=== PATIENT | male | born 1940 | race Caucasian/White ===

== ENCOUNTER 2020-10-29 06:54 | Outpatient (CLI) | payer MEDICARE, BC ==
[2020-10-29 16:43] LABS: Hemoglobin 14.8 g/dL (14.0-18.0); Mean Corpuscular HGB CONC 33.5 G/DL (32.0-36.0); Mean Corpuscular Hemoglobin 29.8 PG (27.0-33.0); Mean Corpuscular Volume 89.1 fl (80.0-100.0); Mean Platelet Volume 10.4 fl (7.4-10.4); Platelet Count 151 10x3/uL (130-400); RBC Distribution Width 13.5 % (11.5-14.5); Red Blood Cell (RBC) Count 4.96 10x6/uL (4.40-5.80); White Blood Cell (WBC) Count 3.6 10x3/uL (4.5-11.0)
[2020-10-29 16:54] LABS: Bilirubin Neg (Negative); Blood, Urine 25 (Negative); Clarity Clear (Clear); Glucose, Urine (Dipstick) 250 mg/dL (Negative); Ketone, Urine 5 mg/dL (Negative); Leukocyte 25 (Negative); Nitrite Negative (Negative); Protein, Urine (Dipstick) 100 mg/dl (Neg-Trace); Urobilinogen Normal mg/dL (Less than 2)
[2020-10-29 16:56] LABS: Anion Gap 17 mmol/L (10-20); BUN (Urea Nitrogen) 22 mg/dL (8.4-25.7); Calc. Creatinine Clearance 0 mL/min (70-130); Calcium 8.7 mg/dL (7.8-10.44); Carbon Dioxide 23 mmol/L (23-31); Chloride 105 mmol/L (98-107); Glucose 294 mg/dL (83-110); Potassium 3.8 mmol/L (3.5-5.1); Sodium 141 mmol/L (136-145)
[2020-10-29 16:58] LABS: INR-International Normal Ratio 1.1; PTT 28.3 sec (22.0-33.0); Prothrombin Time 11.2 sec (9.5-12.1)
[2020-10-29 17:17] LABS: Squamous Epithelial 0-3 HPF (0-3)
[2020-10-29 17:18] LABS: Bacteria/HPF Rare-Few HPF (None Seen); Mucous/LPF 1+ LPF (<2+); Renal Epithelial 0-3 HPF (None Seen); Transitional Epithelial 0-3 HPF (None Seen)
[2020-10-30 03:07] LABS: SARS-CoV-2 MS2 Positive; SARS-CoV-2 N Gene Negative; SARS-CoV-2 S Gene Negative; SARS-CoV-2 by NAA Not Detected (NotDetected); SARS-CoV-2 orf1ab Negative
--- NOTE | 2020-10-30 16:09 | EKG ---
Test Reason : Blood Pressure : / mmHG Vent. Rate : 062 BPM Atrial Rate : 062 BPM P-R Int : 198 ms QRS Dur : 086 ms QT Int : 420 ms P-R-T Axes : 062 039 011 degrees QTc Int : 426 ms Sinus rhythm with Premature atrial complexes Otherwise normal ECG No previous ECGs available Confirmed by DR. Georges EID ([id number]) on 10/30/2020 4:08:52 PM Referred By: LINH Confirmed By:DR. Georges EID
== END 2020-10-29 06:55 | disposition home or self-care (01) ==
LOC: LABBT 06:54
PROVIDERS: ATTEND Urology
DX: Z01.818 Encounter for other preprocedural examination (principal); C67.9 Malignant neoplasm of bladder, unspecified; N40.0 Benign prostatic hyperplasia without lower urinary tract symptoms; Z20.828 Contact with and (suspected) exposure to other viral communicable diseases
CPT/HCPCS: 80048; 81001; 85027; 85610; 85730; 87086; 93005; U0003; 87635; 93010

== ENCOUNTER 2020-11-03 11:41 | Observation (INO) | payer MEDICARE, BC ==
[~2020-11-03 11:41] MED LIST: Lidocaine 1% PF 5 ML VIAL ONE; PROPOFOL 200 MG/20 ML VIAL ONE
[2020-11-03] MEDS ORDERED: Levofloxacin 500 mg/D5W 100 ml Premix Bag ONE (13:55)
[2020-11-03] MEDS ORDERED: Fentanyl 100 MCG/2 ML VIAL ONE ×3 (15:16→21:09)
[2020-11-03] MEDS ORDERED: Iothalamate Meglumine 60% 50 ML VIAL FS ONE (15:29)
[2020-11-03] MEDS ORDERED: Ondansetron PF 4 MG/2 ML Vial IVP PRN (16:36)
[2020-11-03] MEDS ORDERED: Insulin Regular 300 UNITS/3 ML VIAL SC PRN (16:36)
[2020-11-03] MEDS ORDERED: HYDROcodone/Acetaminophen 5/325 mg Tablet PO PRN (16:36)
[2020-11-03] MEDS ORDERED: Zolpidem Tartrate 5 MG TAB PO PRN (16:36)
[2020-11-03] MEDS ORDERED: Dextrose 50% Abboject 50 ML SYRINGE SLOW IVP PRN (16:36)
[2020-11-03] MEDS ORDERED: Hyoscyamine Sulfate SL 0.125 mg Tablet SL PRN (16:36)
[2020-11-03] MEDS ORDERED: Ketorolac Tromethamine 30 MG/ML VIAL IVP PRN (16:36)
[2020-11-03] MEDS ORDERED: diphenhydrAMINE 50 MG/ML VIAL IVP PRN (16:36)
[2020-11-03] MEDS ORDERED: Dextrose 5% in Water 1,000 ML IV PRN (16:36)
[2020-11-03] MEDS ORDERED: ENTACAPONE PO SCH (17:00)
[2020-11-03] MEDS ORDERED: [UNRECOGNIZED DRUG - OTHER] PO SCH (17:00)
[2020-11-03] MEDS ORDERED: LEVODOPA PO SCH (17:00)
[2020-11-03] MEDS ORDERED: CARBIDOPA PO SCH (17:00)
--- NOTE | 2020-11-03 19:49 | OP ---
DATE OF PROCEDURE: 11/03/2020 PREOPERATIVE DIAGNOSIS: Bladder cancer, prostatic urethra tumor, enlarged prostate with lower urinary tract symptoms. 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 PROCEDURES PERFORMED: Transurethral resection of prostate, bladder biopsy, retrograde pyelogram. ANESTHESIA: General. COMPLICATIONS: None. ESTIMATED BLOOD LOSS: Minimal. SPECIMENS: Bladder biopsy, prostatic urethra tumor, prostate. COMPLICATIONS: None. DESCRIPTION OF PROCEDURE: After informed consent, the patient was taken to the operating room, transferred to the table on his own power. Anesthesia was established. Time-out was performed showing the correct patient, site, and procedure. Preoperative antibiotics were administered. He was prepped and draped in the lithotomy position. The rigid resectoscope was advanced through the urethra noting a normal course and caliber of the urethra down to the prostatic urethra noting abnormal tumor emanating from the left lobe of the prostate and a lower profile tumor emanating more proximally from the right lobe. Both lobes were obstructing. The bladder was entered and systematically examined, noting moderate trabeculation with only very minimal erythema into small areas. There were no obvious mucosal abnormalities. I am able to appreciate several previous resection sites. Both ureters normal in appearance. A [place] catheter was used to perform bilateral retrograde pyelogram noting no filling defects or evidence of hydronephrosis. The resection loop was then used to take two bladder biopsies from the areas of erythema, which were passed off. I then resected the tumor from the prostatic urethra and these were passed off as well separately. Finally, I resected the left lobe from 1 o'clock down to midline and then the right lobe from 11 o'clock down to midline. Anterior obstructing tissue was then removed. Care was taken to avoid resection distal to the verumontanum. Meticulous hemostasis was then achieved both in the prostate and bladder. The bladder was drained and reexamined, noting no residual bleeding. All prostate chips were removed and passed off as specimen. The bladder was then drained, the scope withdrawn. A 22-[place] 3-way catheter was placed with 30 mL instilled in the balloon. This was connected to CBI, which was running clear as we finished the case. The patient was then awoken from anesthesia, transferred back to his hospital bed and taken to PACU stable condition, where he will be admitted overnight for CBI. Job ID: [id number]
[2020-11-03] MEDS ORDERED: Simvastatin 10 MG TAB PO SCH (21:00)
--- NOTE | 2020-11-03 21:56 | RAD ---
XR Fluoro - Per Hour History: Stone Comparison: None. Findings: 3 images were obtained from the procedure suite. Contrast is seen within both collecting sy stems. Possible right distal ureteral stone. Impression: Fluoroscopy for procedure purposes
[2020-11-03] MEDS ORDERED: Amlodipine 5 MG TAB PO SCH (22:45)
[2020-11-03] MEDS ORDERED: Losartan 25 MG TAB PO SCH (23:00)
[2020-11-03] MEDS: Pregabalin 75 MG CAP PO SCH (23:00)
[2020-11-03] MEDS: Docusate 100 MG CAP PO SCH (23:01)
[2020-11-03] MEDS: Famotidine/PF 20 mg/2ml Vial SLOW IVP SCH (23:01)
[2020-11-03] MEDS: Sodium Chloride 0.9% 1,000 ML IV SCH (23:01)
[2020-11-03 23:35] VITALS: BMI 30.5
[2020-11-04] MEDS ORDERED: hydrALAZINE 20 MG/ML VIAL SLOW IVP PRN (00:37)
[2020-11-04] MEDS: Sodium Chloride 0.9% 1,000 ML IV SCH (06:19)
[2020-11-04] MEDS ORDERED: Amlodipine 5 MG TAB PO SCH ×2 (09:00→21:00)
[2020-11-04] MEDS ORDERED: Losartan 25 MG TAB PO SCH ×2 (09:00→21:00)
[2020-11-04] MEDS: Docusate 100 MG CAP PO SCH (09:17)
[2020-11-04] MEDS: Famotidine/PF 20 mg/2ml Vial SLOW IVP SCH (09:17)
--- NOTE | 2020-11-04 09:25 | DIS ---
DATE OF ADMISSION: 11/03/2020 DATE OF DISCHARGE: 11/04/2020 DISCHARGE DIAGNOSIS: Bladder cancer, enlarged prostate with lower urinary tract symptoms. PROCEDURES PERFORMED: Transurethral resection of prostate, bladder biopsy, retrograde pyelograms. HOSPITAL COURSE: The patient underwent resection of prostatic urethral tumor, bladder biopsy, resection of prostate on November 03. There were no surgical complications. He was managed overnight with continuous bladder irrigation, which was clear the next morning. This was stopped and his urine remained clear off CBI. He was deemed stable for discharge home at that point. DISCHARGE PHYSICAL EXAMINATION: GENERAL: No acute distress. LUNGS: Unlabored breathing. HEART: Regular rate and rhythm. ABDOMEN: Soft, nontender, and nondistended. No flank tenderness. No suprapubic tenderness. GENITOURINARY: [place] catheter in good position, draining clear urine. ACTIVITY: Resume regular activity. DIET: Resume diabetic diet. DISCHARGE MEDICATIONS: He will resume all home medications. I have sent Bactrim, oxybutynin, docusate to his pharmacy. FOLLOWUP: He will follow up next Monday for void trial in our office. Job ID: [id number]
[2020-11-04 09:37] VITALS: TEMP 97.8
[2020-11-04] MEDS: Pregabalin 75 MG CAP PO SCH (10:15)
[2020-11-04 12:27] VITALS: BP 156/63
== END 2020-11-04 14:40 | disposition home or self-care (01) ==
LOC: SDC 11:41 → SURG B 15:34 → SDC 16:36 → SURG B 16:36
PROVIDERS: ADMIT Urology; ATTEND Urology
PROC: 0V507ZZ Destruction of Prostate, Via Natural or Artificial Opening (ICD-10-PCS; principal; 2020-11-03)
DX: N40.1 Benign prostatic hyperplasia with lower urinary tract symptoms (principal); C67.2 Malignant neoplasm of lateral wall of bladder; I12.9 Hypertensive chronic kidney disease with stage 1 through stage 4 chronic kidney disease, or unspecified chronic kidney disease; E11.21 Type 2 diabetes mellitus with diabetic nephropathy; E11.22 Type 2 diabetes mellitus with diabetic chronic kidney disease; N18.30 Chronic kidney disease, stage 3 unspecified; E78.5 Hyperlipidemia, unspecified; I25.10 Atherosclerotic heart disease of native coronary artery without angina pectoris; I73.9 Peripheral vascular disease, unspecified; J44.9 Chronic obstructive pulmonary disease, unspecified; G20 Parkinson's disease; F02.80 Dementia in other diseases classified elsewhere, unspecified severity, without behavioral disturbance, psychotic disturbance, mood disturbance, and anxiety; K21.9 Gastro-esophageal reflux disease without esophagitis; Z79.4 Long term (current) use of insulin; Z79.899 Other long term (current) drug therapy; Z87.891 Personal history of nicotine dependence
CPT/HCPCS: 36416; 74420; 76000; 88305; 96374; 96375; 96376; G0378; J0360; J1956; J2704; J3010; S0028

== ENCOUNTER 2020-11-07 13:43 | Inpatient (IN) | payer MEDICARE, BC ==
[~2020-11-07 13:43] MED LIST changes: +Iopamidol-370 76% 500 ML 1 ML ONE; -Lidocaine 1% PF 5 ML VIAL ONE; -PROPOFOL 200 MG/20 ML VIAL ONE
--- NOTE | 2020-11-07 14:39 | RAD ---
XR Chest 1 View Portable HISTORY: Near syncope. Recent bladder surgery COMPARISON: None FINDINGS: The heart size is normal. The lungs are without focal areas of consolidation, pneumothorax or pleural effusions. There is mild atelectatic change at the right lung base. There is interposition of the colon between the right hemidiaphragm and the liver..
--- NOTE | 2020-11-07 14:40 | CT ---
CT BRAIN WITHOUT CONTRAST: HISTORY:Near syncope COMPARISON:None FINDINGS: There are foci of decreased attenuation in the periventricular white matter, consistent with chronic small vessel ischemic disease. There are changes of cortical atrophy. No evidence of acute infarct, hemorrhage, midline shift or abnormal extra-axial fluid collections is seen. The ventricular size is appropriate and the basilar cisterns are patent. The bony calvarium is intact. There is a mucous retention cyst versus polyp in the right maxillary sinus. IMPRESSION: No CT evidence of acute intracranial process.
[2020-11-07 14:57] LABS: #Eosinphils 0.1 thou/uL (0.0-0.7); #Lymphocytes 0.6 thou/uL (1.20-3.40); #Monocytes 0.5 thou/uL (0.11-0.59); #Neutrophils 4.3 thou/uL (1.40-6.50); %Basophils 0.1 % (0.0-1.0); %Eosinophils 2.5 % (0.0-10.0); %Lymphocytes 11.4 % (21.0-51.0); %Monocytes 8.4 % (0.0-10.0); %Neutrophils 77.5 % (42.0-75.0); Hemoglobin 14.1 g/dL (14.0-18.0); Mean Corpuscular HGB CONC 34.1 g/dL (32.0-36.0); Mean Corpuscular Hemoglobin 30.7 pg (27.0-31.0); Mean Platelet Volume 8.4 fL (7.4-10.4); Platelet Count 135 thou/uL (130-400); RBC Distribution Width 12.9 % (11.5-14.5); Red Blood Cell (RBC) Count 4.59 mill/uL (4.70-6.10); White Blood Cell (WBC) Count 5.6 thou/uL (4.8-10.8)
[2020-11-07 15:20] LABS: ALT (SGPT) Less than 7 U/L (8-55); AST (SGOT) 9 U/L (5-34); Albumin 3.9 g/dL (3.4-4.8); Alkaline Phosphatase 98 U/L (40-110); Anion Gap 14 mmol/L (10-20); BUN (Urea Nitrogen) 17 mg/dL (8.4-25.7); Bilirubin, Total 0.4 mg/dL (0.2-1.2); Calc. Creatinine Clearance 0 mL/min (70-130); Calcium 8.8 mg/dL (7.8-10.44); Carbon Dioxide 27 mmol/L (23-31); Chloride 103 mmol/L (98-107); Globulin 2.2 g/dL (2.4-3.5); Glucose 248 mg/dL (83-110); Potassium 3.9 mmol/L (3.5-5.1); Protein, Total 6.1 g/dL (5.8-8.1); Sodium 140 mmol/L (136-145)
[2020-11-07 15:54] LABS: Bacteria/HPF None Seen HPF (None Seen); Bilirubin Negative (Negative); Blood, Urine 3+ (Negative); Clarity Turbid (Clear); Glucose, Urine (Dipstick) 70 mg/dL (Negative); Ketone, Urine Trace mg/dL (Negative); Leukocyte 75 Leu/uL (Negative); Nitrite Negative (Negative); Protein, Urine (Dipstick) 300 mg/dL (Neg-Trace); RBC/HPF Greater than 50 HPF (0-3); Specific Gravity, Urine 1.025 (1.002-1.036); Squamous Epithelial None Seen HPF (0-3); Urobilinogen Normal mg/dL (Less than 2); pH, Urine 6.5 (5.0-9.0)
--- NOTE | 2020-11-07 17:15 | CT ---
CT PULMONARY ANGIOGRAM WITH IV CONTRAST AND 3D POSTPROCESSIN11/07/20 HISTORY: Near syncope. FINDINGS: There is good contrast opacification of the pulmonary arterial vasculature without filling defects to suggest pulmonary embolism. There are vascular calcifications without aneurysm or dissection of the thoracic aorta. No pleural or pericardial effusions are identified. No lobar consolidation, pneumot horaces, or lung mass/nodules are seen. There are dependent changes in the posterior lung bases. Ther e are degenerative changes in the spine. There is a peripherally calcified 17 mm nodule in the left l obe of the thyroid gland. IMPRESSION: No CT evidence of pulmonary embolism. POS: OFF
[2020-11-07] MEDS ORDERED: Aspirin Chewable 81 MG TAB ONE (17:57)
[2020-11-07 18:40] LABS: Troponin I 0.017 ng/mL (< 0.028)
[2020-11-07] MEDS ORDERED: Ondansetron PF 4 MG/2 ML Vial IVP PRN ×2 (20:00→22:58)
[2020-11-07] MEDS ORDERED: Acetaminophen 325 MG TAB PO PRN ×2 (20:00→22:58)
[2020-11-07] MEDS ORDERED: Sodium Chloride 0.9% 1,000 ML IV SCH ×2 (20:00→23:00)
[2020-11-07] MEDS ORDERED: Ondansetron ODT 4 MG TAB SL PRN (20:00)
--- NOTE | 2020-11-07 20:38 | PDOC.HHP ---
Hospitalist HPI - History of Present Illness AMS History of Present Illness: PCP: Dr. De La Torre The majority of the H&P was taken from the ER note due to the patient's altered mental status. The patient is an 80-year-old male with a past medical history significant for prostate cancer, bladder cancer, BPH, Parkinson's disease, hypertension and DM2 that presents to the emergency department via EMS for the above complaint. The patient was recently discharged from our hospital on 09/04/2020 after undergoing a TURP, bladder biopsy and retrograde pyelogram with Dr. Mcnulty. The patient tolerated the procedure well. There were no postop complications. The patient was discharged home on Bactrim and oxybutynin. Since discharge, the patient has been confused. There is mention of visual hallucinations and general weakness. The night prior to admission, the patient apparently needed assistance to sit down in a chair and then was lowered to the floor because he was so weak and missed the chair. There was no LOC or hitting his head. No documented fever/illness, fall/trauma. Recently started on bactrim and oxybutynin s/p TURP. No documented hematuria, hematochezia/melena or hemoptysis. EMS was called and the patient was brought into the emergency room for further evaluation. ED Course: Vital signs: The patient presented hypertensive, NL HR, RR, SPO2, afebrile. Medication administration: Full dose aspirin 1 L normal saline Hospitalist ROS - Review of Systems ROS unobtainable: due to mental status All other systems reviewed; all pertinent +/- noted in HPI/Subj - Medication Medications: Medication Instructions Recorded Confirmed Type Amlodipine [Norvasc] 5 mg PO DAILY 11/02/20 11/07/20 History Carbidopa/Levodopa/Entacapone 1 each PO QID 11/02/20 11/07/20 History [Carbidopa-Levodopa 200 mg-Enta] Dulaglutide [Trulicity] 1.5 mg SC Q7D 11/02/20 11/07/20 History Ergocalciferol (Vitamin D2) 50,000 unit PO Q7DAYS 11/02/20 11/07/20 History [Vitamin D2] Insulin Degludec [Tresiba 10 unit SQ QPM 11/02/20 11/07/20 History Flextouch U-100] Losartan Potassium 50 mg PO DAILY 11/02/20 11/07/20 History Multivit-Min/FA/Lycopen/Lutein 1 each PO DAILY 11/02/20 11/07/20 History [Men 50 Plus Multivitamin Tab] Pantoprazole Sodium 40 mg PO DAILY 11/02/20 11/07/20 History Pregabalin [Lyrica] 150 mg PO TID 11/02/20 11/07/20 History Simvastatin 10 mg PO HS 11/02/20 11/07/20 History Tamsulosin HCl 0.4 mg PO QAM 11/02/20 11/07/20 History Valsartan 40 mg PO DAILY 11/02/20 11/07/20 History diphenhydrAMINE HCl 50 mg PO QAM PRN 11/02/20 11/07/20 History [Diphenhydramine HCl] Oxybutynin [Ditropan] 1 tab PO BID 11/07/20 11/07/20 History Sulfamethoxazole/Trimethoprim 1 tab PO TID 11/07/20 11/07/20 History [Sulfamethoxazole-Tmp Ds Tablet] Allergies No Known Allergies Allergy (Verified 11/02/20 11:03) CODE STATUS: Full code Hospitalist History - Past Medical History Source: RN notes reviewed, old records Cardiac: reports: HTN, Hyperlipidemia, Other (Blood clots) 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: Other (Parkinson's disease) Renal/: reports: Chronic renal insuff (CKD 3), Benign prostatic enlarg., Other (Bladder cancer, prostate cancer) Endocrine: reports: Diabetes (Type II on insulin) - Past Surgical History Past Surgical History: reports: Appendectomy, TURP (11/03/2020), Other (Back surgery x4, bilateral knee surgery, right rotator cuff surgery, bilateral hip revision) - Family History Other Family History: Unable to determine at bedside due to patient's altered mental status - Social History Smoking Status: Former smoker (Quit greater than 10 years ago) Alcohol: reports: Occassional Drugs: reports: none Living Situation: Other (Unable to determine at time of admission due to patient's altered mental status) - Exam General Appearance: awake alert. negative: ill appearing General - other findings: Confused, follows commands Eye: PERRL, anicteric sclera ENT: normocephalic atraumatic, moist mucosa Neck: supple, symmetric Heart: RRR, no murmur, no gallops, no rubs, normal peripheral pulses Respiratory: CTAB, no wheezes, no rales, no ronchi, normal chest expansion, no tachypnea Gastrointestinal: soft, non-tender, non-distended, normal bowel sounds, no guarding, no rigidity Gastrointestinal - other findings: No rebound tenderness, negative Rovsing sign, negative Villafuerte sign Extremities: no cyanosis, no edema Skin: no rashes Neurological: no focal deficits Neurological - other findings: Bilateral upper extremity tremor, GCS: E4, V4, M6 Psychiatric - other findings: Alert and oriented to person Hospitalist Results - Labs Result Diagrams: 11/07/20 14:48 11/07/20 14:48 Lab results: WBC 5.6 thou/uL (4.8-10.8) 11/07/20 14:48 Hgb 14.1 g/dL (14.0-18.0) 11/07/20 14:48 Hct 41.4 % (42.0-52.0) L 11/07/20 14:48 MCV 90.0 fL (78.0-98.0) 11/07/20 14:48 Plt Count 135 thou/uL (130-400) 11/07/20 14:48 Neutrophils % 77.5 % (42.0-75.0) H 11/07/20 14:48 Sodium 140 mmol/L (136-145) 11/07/20 14:48 Potassium 3.9 mmol/L (3.5-5.1) 11/07/20 14:48 Chloride 103 mmol/L (98-107) 11/07/20 14:48 Carbon Dioxide 27 mmol/L (23-31) 11/07/20 14:48 BUN 17 mg/dL (8.4-25.7) 11/07/20 14:48 Creatinine 1.61 mg/dL (0.7-1.3) H 11/07/20 14:48 Glucose 248 mg/dL (83-110) H 11/07/20 14:48 Calcium 8.8 mg/dL (7.8-10.44) 11/07/20 14:48 Total Bilirubin 0.4 mg/dL (0.2-1.2) 11/07/20 14:48 AST 9 U/L (5-34) 11/07/20 14:48 ALT Less than 7 U/L (8-55) L 11/07/20 14:48 Alkaline Phosphatase 98 U/L (40-110) 11/07/20 14:48 Troponin I 0.017 ng/mL (< 0.028) 11/07/20 18:10 Serum Total Protein 6.1 g/dL (5.8-8.1) 11/07/20 14:48 Albumin 3.9 g/dL (3.4-4.8) 11/07/20 14:48 Urine Ketones Trace mg/dL (Negative) A 11/07/20 15:24 Urine Blood 3+ (Negative) A 11/07/20 15:24 Urine Nitrite Negative (Negative) 11/07/20 15:24 Ur Leukocyte Esterase 75 Emmanuelle/uL (Negative) A 11/07/20 15:24 Urine RBC Greater than 50 HPF (0-3) A 11/07/20 15:24 Urine WBC 4-6 HPF (0-3) A 11/07/20 15:24 Ur Squamous Epith Cells None Seen HPF (0-3) 11/07/20 15:24 Urine Bacteria None Seen HPF (None Seen) 11/07/20 15:24 - EKG Interpretation EKG: Sinus rhythm, first-degree AV block, LVH, no ST elevations - Radiology Interpretation CT scan - head Status: report reviewed by me Additional Comment: No acute intracranial process Chest x-ray Status: report reviewed by me Additional Comment: Mild atelectatic change in the right lower base CT scan - chest Status: report reviewed by me Additional Comment: Negative for pulmonary embolism. Hospitalist H&P A/P - Problem (1) Altered mental status Code(s): R41.82 - ALTERED MENTAL STATUS, UNSPECIFIED Status: Acute (2) Near syncope Status: Acute (3) BPH (benign prostatic hyperplasia) Code(s): N40.0 - BENIGN PROSTATIC HYPERPLASIA WITHOUT LOWER URINRY TRACT SYMP Status: Chronic (4) Hypertension Code(s): I10 - ESSENTIAL (PRIMARY) HYPERTENSION Status: Chronic (5) CKD (chronic kidney disease), stage III Code(s): N18.30 - CHRONIC KIDNEY DISEASE, STAGE 3 UNSPECIFIED Status: Chronic (6) DM2 (diabetes mellitus, type 2) Status: Chronic (7) Parkinsons disease Code(s): G20 - PARKINSON'S DISEASE Status: Chronic - Plan Plan: 80/M with PMH prostate/bladder CA, PD presents for AMS. Admit to telemetry floor, inpatient status. Expected length of stay greater than 2 midnights. Presented hypertensive, NL HR, RR, SPO2, afebrile. CT brain no acute process EKG NSR, first-degree AV block. Troponin 0.017, 0.018, 0.012. D-dimer 0.66, CTA no PE WBC 5.6, UA positive leukocyte esterase, WBCs #Altered mental status Unclear etiology at this time. Status post TURP on 11/[address] Mcnulty. Started on Bactrim and oxybutynin at that time. Will defer ABX for now, no obvious signs of infection. Consult Dr. Mcnulty. Urine culture pending. Check ammonia, drug screen, TSH level. #Near syncope Unclear etiology at this time. EKG and CT brain unremarkable. We will trend troponins. Urine culture pending. #BPH History of prostate and bladder cancer. Status post TURP with bladder biopsy on 11/[address] Mcnulty. #Hypertension Presented hypertensive. Takes amlodipine and losartan at home. Restart home medications. Add hydralazine as needed #CKD stage III Chronic, appears stable. Presented creatinine 1.61. Was 1.42 on 10/29/2020. Was taking Bactrim at home. We will continue to monitor. #DM2 Presented BG 248. Takes Tresiba 10 units and Trulicity at home. Restart home medications. We will add mild ISS. Accu-Cheks AC at bedtime. #Parkinson's disease Chronic. Takes carbidopa levodopa at home. Restart home medications when reconciled by nursing. SCDs for DVT prophylaxis. Protonix for GI prophylaxis. Full code. Discussed the case with Dr. Yusuf Brand.
[2020-11-07] MEDS ORDERED: diphenhydrAMINE 25 MG CAP PO PRN (21:32)
[2020-11-07] MEDS ORDERED: Dextrose 50% Abboject 50 ML SYRINGE SLOW IVP PRN (21:49)
[2020-11-07] MEDS ORDERED: Dextrose 5% in Water 1,000 ML IV PRN (21:49)
[2020-11-07] MEDS ORDERED: HumaLOG 300 UNITS/3 ML VIAL SC PRN (21:49)
[2020-11-07 22:06] LABS: Troponin I 0.012 ng/mL (< 0.028)
[2020-11-07] MEDS ORDERED: hydrALAZINE 20 MG/ML VIAL SLOW IVP PRN (22:11)
[2020-11-07] MEDS ORDERED: Ondansetron ODT 4 MG TAB PO PRN (22:58)
[2020-11-07] MEDS ORDERED: Acetaminophen 650 MG Suppository PR PRN (22:58)
[2020-11-07 23:59] LABS: Amphetamine Not Detected (NotDetected); Barbiturates Screen Not Detected (NotDetected); Benzodiazepine Screen Detected (NotDetected); Cocaine Metabolite Screen Not Detected (NotDetected); Medtox Control Line Valid? VALID (VALID); Medtox Reader # READER 1; Methadone Not Detected (NotDetected); Methamphetamine Not Detected (NotDetected); Opiate Screen Not Detected (NotDetected); Oxycodone Screen Not Detected (NotDetected); Phencyclidine (PCP) Not Detected (NotDetected); THC/Cannabinoid Screen Not Detected (NotDetected); Tricyclic Screen Not Detected (NotDetected)
[2020-11-08 00:22] LABS: Acetaminophen Less than 6.0 mcg/mL (10.0-30.0); Alcohol Less than 10 mg/dL (Less than 10); Salicylate Less than 8.0 mg/dL (15.0-30.0)
[2020-11-08 04:29] VITALS: BMI 28.4
[2020-11-08 04:32] LABS: #Eosinphils 0.1 thou/uL (0.0-0.7); #Lymphocytes 0.6 thou/uL (1.20-3.40); #Monocytes 0.3 thou/uL (0.11-0.59); #Neutrophils 2.7 thou/uL (1.40-6.50); %Eosinophils 3.8 % (0.0-10.0); %Neutrophils 72.2 % (42.0-75.0); Hemoglobin 12.9 g/dL (14.0-18.0); Mean Corpuscular HGB CONC 34.3 g/dL (32.0-36.0); Mean Corpuscular Hemoglobin 30.6 pg (27.0-31.0); Mean Corpuscular Volume 89.2 fL (78.0-98.0); Mean Platelet Volume 8.7 fL (7.4-10.4); Platelet Count 130 thou/uL (130-400); RBC Distribution Width 12.9 % (11.5-14.5); Red Blood Cell (RBC) Count 4.23 mill/uL (4.70-6.10); White Blood Cell (WBC) Count 3.7 thou/uL (4.8-10.8)
[2020-11-08 04:47] LABS: Anion Gap 14 mmol/L (10-20); BUN (Urea Nitrogen) 14 mg/dL (8.4-25.7); Calc. Creatinine Clearance 51 mL/min (70-130); Calcium 8.4 mg/dL (7.8-10.44); Carbon Dioxide 24 mmol/L (23-31); Chloride 106 mmol/L (98-107); Glucose 195 mg/dL (83-110); Potassium 3.6 mmol/L (3.5-5.1); Sodium 140 mmol/L (136-145)
[2020-11-08 08:14] LABS: SARS-CoV-2 MS2 Positive; SARS-CoV-2 N Gene Negative; SARS-CoV-2 S Gene Negative; SARS-CoV-2 by NAA Not Detected (NotDetected); SARS-CoV-2 orf1ab Negative
[2020-11-08] MEDS ORDERED: Ergocalciferol 1.25 MG(50,000 UNITS) CAP PO SCH (09:00)
[2020-11-08] MEDS ORDERED: Famotidine/PF 20 mg/2ml Vial SLOW IVP SCH (09:00)
[2020-11-08] MEDS ORDERED: Amlodipine 5 MG TAB PO SCH (09:00)
[2020-11-08] MEDS ORDERED: Famotidine 20 MG TAB PO SCH (09:00)
[2020-11-08] MEDS: Losartan 25 MG TAB PO SCH (10:03)
[2020-11-08] MEDS: Tamsulosin HCl 0.4 MG CAP PO SCH (10:04)
[2020-11-08] MEDS: Multivitamin W/ Minerals 1 TAB PO SCH (10:05)
--- NOTE | 2020-11-08 13:09 | PDOC.HOSPP ---
- Subjective Encounter Date: 11/08/20 Encounter Time: 09:50 Subjective: Patient looks quite tired. He is able to see only his name. But he is also confused he does not know the date thinks it is March 18. I talked to the doctor, according to her and he had his surgery on Monday and was since going home he is more delusions and he fell at home hit his head and right elbow and right hip. They have a home health arranged but they preferred sending him to the skilled nursing at the time of discharge. She also wants him to be DNR. - Objective Vital Signs & Weight: Vital Signs (12 hours) Temp Pulse Pulse Pulse Resp BP BP 11/08/20 10:42 54 L 55 L 193/86 H 11/08/20 10:04 54 L 139/64 11/08/20 08:00 11/08/20 07:44 96.9 F L 54 L 16 11/08/20 03:33 98.0 F 60 16 11/08/20 01:25 57 L 172/126 H BP BP BP Pulse Ox 11/08/20 10:42 191/86 H 11/08/20 10:04 11/08/20 08:00 94 L 11/08/20 07:44 139/64 94 L 11/08/20 03:33 175/72 H 94 L 11/08/20 01:25 Weight Weight 204 lb I&O: 11/07/20 11/08/20 11/09/20 06:59 06:59 06:59 Output Total 2200 Balance -2200 Result Diagrams: 11/08/20 03:53 11/08/20 03:53 Additional Labs: Accuchecks 11/08/20 11/08/20 10:48 05:21 POC Glucose 173 H 185 H Hospitalist ROS - Medication Medications: Active Medications Generic Name Dose Route Start Last Admin Trade Name Freq PRN Reason Stop Dose Admin Ergocalciferol 1.25 mg 11/08/20 09:00 11/08/20 10:04 Ergocalciferol 1.25 Mg(50,000 Units) Cap PO 1.25 mg Q7DAYS MANJULA Administration Hydralazine HCl 10 mg 11/07/20 22:11 11/08/20 01:25 Hydralazine 20 Mg/Ml Vial SLOW IVP 10 mg Q4H PRN Administration SBP > 180 or DBP > 105 Iron/Minerals/Multivitamins 1 tab 11/08/20 09:00 11/08/20 10:05 Multivitamin W/ Minerals 1 Tab PO 1 tab DAILY MANJULA Administration Losartan Potassium 50 mg 11/08/20 09:00 11/08/20 10:03 Losartan 25 Mg Tab PO 50 mg DAILY MANJULA Administration Pantoprazole Sodium 40 mg 11/08/20 09:00 11/08/20 10:04 Pantoprazole 40 Mg Tab PO 40 mg DAILY MANJULA Administration Tamsulosin HCl 0.4 mg 11/08/20 09:00 11/08/20 10:04 Tamsulosin Hcl 0.4 Mg Cap PO 0.4 mg QAM MANJULA Administration - Exam General Appearance: NAD, awake alert, ill appearing Eye: PERRL, anicteric sclera ENT: normocephalic atraumatic Neck: supple Heart: RRR, normal peripheral pulses Respiratory: CTAB, normal chest expansion Gastrointestinal: soft, normal bowel sounds Extremities: no edema Neurological: cranial nerve grossly intact, no focal deficits, no new deficit Psychiatric: normal behavior, oriented to person, lethargic Hosp A/P - Plan 80/M with PMH prostate/bladder CA, PD presents for AMS. 1) Altered mental status CT brain no acute process EKG NSR, first-degree AV block. Troponin 0.017, 0.018, 0.012. D-dimer 0.66, CTA no PE WBC 5.6, UA positive leukocyte esterase, WBCs (2) Near syncope Probably multifactorial with poor p.o. intake and being on hypertensive medica tions (6) DM2 (diabetes mellitus, type 2) Status: Chronic (7) Parkinsons disease Code(s): G20 - PARKINSON'S DISEASE Status: Chronic - Asymptomatic bacteriuria with recent TURP procedure Hematuria also related likely to the procedure Proteinuria Hematuria --Just follow the clinical course #Altered mental status--multifactorial with recent TURP procedure on last Monday and poor p.o. intake leading to dehydration and being on Bactrim as well as losartan Status post TURP on 11/[address] Mcnulty. Started on Bactrim and oxybutynin at that time.--------------> no antibiotics at this time. No fever no white count clinical monitoring for now. Consult Dr. Mcnulty. --- I will follow with the culture. Unimpressive ammonia, negative drug screen, not TSH level. #BPH History of prostate and bladder cancer. Status post TURP with bladder biopsy on 11/[address] Mcnulty. #Hypertension Presented hypertensive. Takes amlodipine and losartan at home. Restart home medications. Add hydralazine as needed -Today's blood pressure seems to be a on the high end -but that was normalized #CKD stage III Chronic, appears stable. Presented creatinine 1.61. Was 1.42 on 10/29/2020. Was taking Bactrim at home. We will continue to monitor. #DM2 Presented BG 248. Takes Tresiba 10 units and Trulicity at home. Restart home medications. We will add mild ISS. Accu-Cheks AC at bedtime. #Parkinson's disease Chronic. Takes carbidopa levodopa at home. Restart home medications when reconciled by nursing. CODE STATUS discussed and the daughter wants him to be DNR. Plan for rehab/[facility] facility placement
[2020-11-08] MEDS ORDERED: Loratadine 10 MG TAB PO SCH (17:15)
[2020-11-08] MEDS: Senokot S 8.6-50 MG TAB PO PRN (17:26)
[2020-11-08] MEDS: HumaLOG 300 UNITS/3 ML VIAL SC PRN (17:30)
[2020-11-08] MEDS: Amlodipine 5 MG TAB PO SCH (20:38)
[2020-11-08] MEDS: Simvastatin 10 MG TAB PO SCH (20:38)
[2020-11-08] MEDS: Insulin Glargine 10 UNITS in Pre-Filled Syringe 1 EACH SC SCH (20:39)
[2020-11-08] MEDS ORDERED: Non-Formulary Item 1 EACH (Insulin Degludec [Tresiba Flextouch U-100] 100 UNIT/ML Insuln. SC SCH (21:00)
--- NOTE | 2020-11-08 22:42 | CON ---
DATE OF CONSULTATION: 11/07/2020 REASON FOR CONSULTATION: Altered mental status following transurethral resection of prostate gland. HISTORY OF PRESENT ILLNESS: Mr. Arturo Benz is a very pleasant 80-year-old white male originally from [place], who recently moved to the local area and established urologic care with Dr. Mcnulty. Mr. Benz has a history at least a year long of having bladder cancer. The patient was previously diagnosed in [place] and recently established care with Dr. Alec Mcnulty. Dr. Mcnulty performed a transurethral resection of the prostate and bladder biopsy as well as retrograde pyelography on 09/04/2020. The patient was later discharged home in good condition. The patient was discharged with a prescription for Bactrim and oxybutynin. The patient later developed confusion, visual hallucinations, and generalized weakness and was subsequently admitted through the emergency department here at the [facility] on 11/07/2020. The patient was very confused earlier in the day, but has become somewhat more clear during the day with resuscitation. The patient is accompanied by his daughter from [place], who reports that her father is very confused and due to his history of Parkinson disease and other disorders, she is concerned about medication interactions that may have caused this situation. ALLERGIES: NO KNOWN DRUG ALLERGIES. MEDICATIONS: Complete home medication list includes the following, 1. Carbidopa/levodopa/entacapone one tablet p.o. q.i.d. 2. Dulaglutide (Trulicity) 1.5 mg subcu q.7 days. 3. Ergocalciferol (vitamin D2) 50,000 units q.7 days. 4. Insulin degludec (Tresiba FlexTouch) U-100 of 10 units subcu q.p.m. 5. Losartan 50 mg p.o. daily. 6. Daily multivitamin. 7. Pantoprazole sodium 40 mg daily. 8. Pregabalin or Lyrica 150 mg p.o. t.i.d. 9. Simvastatin 10 mg p.o. at bedtime. 10. Tamsulosin 0.4 mg p.o. q.a.m. 11. Valsartan 40 mg p.o. daily. 12. Diphenhydramine hydrochloride 50 mg p.o. q.a.m. 13. Oxybutynin 1 tablet p.o. b.i.d. 14. Sulfamethoxazole/trimethoprim 1 tablet p.o. t.i.d. PAST MEDICAL HISTORY: 1. Hypertension. 2. Hyperlipidemia. 3. Parkinson disease. 4. Chronic renal insufficiency, stage 3. 5. Benign prostatic hypertrophy. 6. Bladder cancer. 7. Diabetes mellitus, type 2, managed with insulin. PAST SURGICAL HISTORY: 1. Appendectomy. 2. Transurethral resection of prostate gland, 11/03/2020. 3. Back surgery x4. 4. Bilateral knee surgery. 5. Right rotator cuff surgery. 6. Bilateral hip revision. SOCIAL HISTORY: The patient is a former cigarette smoker with about 50-pack years total smoking history. He is currently not a smoker. Alcohol use is occasional. PHYSICAL EXAMINATION: GENERAL: This is a pleasant awake and alert white male. He does appear to be a little bit confused. HEAD, EYES, EARS, NOSE, AND THROAT: Extraocular movements are intact. Sclerae anicteric. NECK: Supple. LUNGS: Clear to auscultation bilaterally. CARDIAC: Regular rate and rhythm. ABDOMEN: Soft and nontender. Percussion reveals some increased resonance in all four quadrants. The patient does not report any abdominal or back pain. There is no costovertebral angle tenderness on percussion. GENITOURINARY: Oconnor catheter is in place and is draining urine, which appears normal for patient, who has had a transurethral resection or some particulates of blood and clot material in the catheter, but the patient does not appear to be grossly bleeding at the present time. Digital rectal examination is not performed due to recent transurethral resection. EXTREMITIES: Appear within normal limits. LABORATORY STUDIES: The patient's white count is non-elevated at 5.6, hemoglobin is 14.1 with hematocrit of 41.4. Electrolytes are within normal limits excepting a blood urea nitrogen of 17 and creatinine of 1.61. Glucose elevated at 248. RADIOLOGIC STUDIES: A CT scan of the patient's head was performed this afternoon and shows decreased attenuation of the periventricular white matter consistent with chronic small-vessel ischemic disease and changes of cortical atrophy are present. No evidence of infarct or other cause for the patient's symptoms. ASSESSMENT AND PLAN: 1. Altered mental status following surgery, most likely causes would be infectious cause such as unroofing of prostatitis or urinary tract infection. The patient's urinalysis is not suggestive given the recent resection and his urine looks relatively clear. He does not have much in the way of a white count either. Multiple drug interactions or residual anesthesia medications could contribute to the presentation as well and other toxic metabolic conditions could contribute. At the present time, the patient is undergoing appropriate rehydration and supportive care and appears to be improving. At the present time, I do not observe any urosurgical cause for the patient's presentation. This patient of Dr. Mcnulty should follow up with him and perhaps Dr. Mcnulty will be available on Monday for evaluation. Over 70 minutes of initial evaluation, consultation, and assessment time was spent in assessment of this patient today. Job ID: [id number]
[2020-11-09] MEDS: hydrALAZINE 20 MG/ML VIAL SLOW IVP PRN ×2 (00:52→14:38)
[2020-11-09] MEDS: Loratadine 10 MG TAB PO SCH (09:39)
[2020-11-09] MEDS: Losartan 25 MG TAB PO SCH (09:39)
[2020-11-09] MEDS: Tamsulosin HCl 0.4 MG CAP PO SCH (09:39)
[2020-11-09] MEDS: Amlodipine 5 MG TAB PO SCH ×2 (09:39→20:22)
[2020-11-09] MEDS: Multivitamin W/ Minerals 1 TAB PO SCH (09:39)
[2020-11-09 09:42] LABS: Anion Gap 16 mmol/L (10-20); BUN (Urea Nitrogen) 16 mg/dL (8.4-25.7); Calc. Creatinine Clearance 50 mL/min (70-130); Calcium 8.8 mg/dL (7.8-10.44); Carbon Dioxide 23 mmol/L (23-31); Chloride 103 mmol/L (98-107); Glucose 229 mg/dL (83-110); Potassium 3.5 mmol/L (3.5-5.1); Sodium 138 mmol/L (136-145)
[2020-11-09] MEDS: HumaLOG 300 UNITS/3 ML VIAL SC PRN (12:12)
--- NOTE | 2020-11-09 13:56 | PDOC.HOSPP ---
- Subjective Encounter Date: 11/09/20 Encounter Time: 09:40 Subjective: Patient appears quite confused. He is still wondering whether and Dr. Robbins will come and do the procedure. He is also wondering why he is not getting any food here. He is oriented to himself. He is afebrile but his blood pressure is quite elevated. - Objective Vital Signs & Weight: Vital Signs (12 hours) Temp Pulse Pulse Pulse Resp BP BP 11/09/20 11:30 97.6 F 64 15 11/09/20 09:39 61 158/67 H 11/09/20 08:37 63 72 161/72 H 11/09/20 08:00 11/09/20 07:18 97.2 F L 61 16 11/09/20 04:00 97.5 F L 73 BP BP Pulse Ox 11/09/20 11:30 184/81 H 97 11/09/20 09:39 11/09/20 08:37 204/84 H 11/09/20 08:00 96 11/09/20 07:18 158/67 H 96 11/09/20 04:00 139/70 98 Weight Weight 203 lb 14.4 oz I&O: 11/08/20 11/09/20 11/10/20 06:59 06:59 06:59 Intake Total 910 360 Output Total 2200 1650 Balance -2200 -740 360 Result Diagrams: 11/08/20 03:53 11/09/20 09:13 Additional Labs: Accuchecks 11/09/20 11/09/20 11/08/20 10:55 05:39 20:36 POC Glucose 212 H 188 H 183 H 11/08/20 16:11 POC Glucose 225 H Hospitalist ROS - Medication Medications: Active Medications Generic Name Dose Route Start Last Admin Trade Name Freq PRN Reason Stop Dose Admin Amlodipine Besylate 5 mg 11/08/20 21:00 11/09/20 09:39 Amlodipine 5 Mg Tab PO 5 mg BID MANJULA Administration Ergocalciferol 1.25 mg 11/08/20 09:00 11/08/20 10:04 Ergocalciferol 1.25 Mg(50,000 Units) Cap PO 1.25 mg Q7DAYS MANJULA Administration Hydralazine HCl 10 mg 11/08/20 13:08 11/09/20 00:52 Hydralazine 20 Mg/Ml Vial SLOW IVP 10 mg Q4H PRN Administration SBP>150 Insulin Glargine 10 units/ 0.1 mls @ 0 mls/hr 11/08/20 21:00 11/08/20 20:39 Miscellaneous Medication SC 0.1 mls QPM MANJULA Administration Insulin Human Lispro 0 units 11/07/20 21:49 11/09/20 12:12 Humalog 300 Units/3 Ml Vial SC 3 unit .MILD SLIDING SCALE PRN Administration Mild Correctional Scale Iron/Minerals/Multivitamins 1 tab 11/08/20 09:00 11/09/20 09:39 Multivitamin W/ Minerals 1 Tab PO 1 tab DAILY MANJULA Administration Loratadine 10 mg 11/09/20 09:00 11/09/20 09:39 Loratadine 10 Mg Tab PO 10 mg DAILY MANJULA Administration Losartan Potassium 50 mg 11/08/20 09:00 11/09/20 09:39 Losartan 25 Mg Tab PO 50 mg DAILY MANJULA Administration Pantoprazole Sodium 40 mg 11/08/20 09:00 11/09/20 09:39 Pantoprazole 40 Mg Tab PO 40 mg DAILY MANJULA Administration Carbidopa/Levodopa/ 0 each 11/08/20 17:00 11/09/20 12:11 Entacapone 50-200- PO 1 each 200 Mg Tablet QID MANJULA Administration Senna/Docusate Sodium 2 tab 11/07/20 22:58 11/08/20 17:26 Senokot S 8.6-50 Mg Tab PO 2 tab BID PRN Administration Constipation Simvastatin 10 mg 11/08/20 21:00 11/08/20 20:38 Simvastatin 10 Mg Tab PO 10 mg HS MANJULA Administration Tamsulosin HCl 0.4 mg 11/08/20 09:00 11/09/20 09:39 Tamsulosin Hcl 0.4 Mg Cap PO 0.4 mg QAM MANJULA Administration - Exam General Appearance: NAD, awake alert, ill appearing General - other findings: Oriented to himself Eye: PERRL ENT: normocephalic atraumatic Neck: supple Heart: RRR Respiratory: CTAB, normal chest expansion Gastrointestinal: soft, normal bowel sounds Neurological: cranial nerve grossly intact, no focal deficits Psychiatric: normal behavior, oriented to person Hosp A/P - Plan 80/M with PMH prostate/bladder CA, PD presents for AMS. 1) Altered mental status CT brain no acute process EKG NSR, first-degree AV block. Troponin 0.017, 0.018, 0.012. D-dimer 0.66, CTA no PE WBC 5.6, UA positive leukocyte esterase, WBCs (2) Near syncope Probably multifactorial with poor p.o. intake and being on hypertensive medications (6) DM2 (diabetes mellitus, type 2) Status: Chronic (7) Parkinsons disease Code(s): G20 - PARKINSON'S DISEASE Status: Chronic - Asymptomatic bacteriuria with recent TURP procedure Hematuria also related likely to the procedure Proteinuria Hematuria --Just follow the clinical course #Altered mental status--multifactorial with recent TURP procedure on last Monday and poor p.o. intake leading to dehydration and being on Bactrim as well as losartan Status post TURP on 11/[address] Mcnulty. Started on Bactrim and oxybutynin at that time.--------------> no antibiotics at this time. No fever no white count clinical monitoring for now. -Urology following--medical management and supportive measures --- I will follow with the culture. Unimpressive ammonia, negative drug screen, normal TSH level. We will also check vitamin D B12 and folate level. #BPH History of prostate and bladder cancer. Status post TURP with bladder biopsy on 11/[address] Mcnulty. -He has a Oconnor that has serosanguineous fluid. #Hypertension Presented hypertensive. Takes amlodipine and losartan at home. Restart home medications. Add hydralazine as needed -Today's blood pressure seems to be a on the high end -but that was normalized #CKD stage III Chronic, appears stable. Presented creatinine 1.61. Was 1.42 on 10/29/2020. Was taking Bactrim at home. We will continue to monitor. #DM2 Presented BG 248. Takes Tresiba 10 units and Trulicity at home. Restart home medications. We will add mild ISS. Accu-Cheks AC at bedtime. #Parkinson's disease Takes carbidopa levodopa at home. Hopefully his mentation would be back to baseline. -I do not see any acute source/etiology including infectious origin for his mentation change. Electrolytes panel is in the normal range. Imaging studies are negative including CT of the head that does not show any abnormalities.. CODE STATUS discussed and the daughter wants him to be DNR. Plan for rehab/care home facility placement.
[2020-11-09] MEDS: hydrALAZINE 25 MG TAB PO SCH ×2 (15:44→20:22)
[2020-11-09] MEDS ORDERED: Dulaglutide [Trulicity] 1.5 MG/0.5 ML Pen.Injctr SC SCH (16:00)
[2020-11-09] MEDS: Bisacodyl 5 MG TAB PO PRN (18:03)
[2020-11-09] MEDS: Senokot S 8.6-50 MG TAB PO PRN (18:03)
[2020-11-09] MEDS: Insulin Glargine 10 UNITS in Pre-Filled Syringe 1 EACH SC SCH (20:22)
[2020-11-09] MEDS: Simvastatin 10 MG TAB PO SCH (20:22)
[2020-11-09] MEDS: Bisacodyl 10 MG SUPP PR SCH (20:23)
[2020-11-10 05:07] LABS: Anion Gap 11 mmol/L (10-20); BUN (Urea Nitrogen) 19 mg/dL (8.4-25.7); Calc. Creatinine Clearance 50 mL/min (70-130); Calcium 8.7 mg/dL (7.8-10.44); Carbon Dioxide 28 mmol/L (23-31); Chloride 102 mmol/L (98-107); Glucose 210 mg/dL (83-110); Potassium 3.1 mmol/L (3.5-5.1); Sodium 138 mmol/L (136-145)
[2020-11-10 05:25] LABS: Vitamin D, 25 Hydroxy 23.3 ng/ml (> 30.0)
[2020-11-10] MEDS: Bisacodyl 10 MG SUPP PR SCH (08:58)
[2020-11-10] MEDS: Bisacodyl 5 MG TAB PO PRN (08:59)
[2020-11-10] MEDS: Losartan 25 MG TAB PO SCH (08:59)
[2020-11-10] MEDS: Amlodipine 5 MG TAB PO SCH ×2 (09:00→21:34)
[2020-11-10] MEDS: Tamsulosin HCl 0.4 MG CAP PO SCH (09:00)
[2020-11-10] MEDS ORDERED: Losartan 25 MG TAB PO SCH (09:00)
[2020-11-10] MEDS: Multivitamin W/ Minerals 1 TAB PO SCH (09:00)
[2020-11-10] MEDS: hydrALAZINE 25 MG TAB PO SCH ×3 (09:00→21:34)
[2020-11-10] MEDS: Loratadine 10 MG TAB PO SCH (09:00)
--- NOTE | 2020-11-10 09:50 | PDOC.FMACP ---
Advance Care Planning - Problem (1) Palliative care encounter Status: Acute Code(s): Z51.5 - ENCOUNTER FOR PALLIATIVE CARE (2) CKD (chronic kidney disease), stage III Status: Chronic Code(s): N18.30 - CHRONIC KIDNEY DISEASE, STAGE 3 UNSPECIFIED (3) DM2 (diabetes mellitus, type 2) Status: Chronic (4) Hypertension Status: Chronic Code(s): I10 - ESSENTIAL (PRIMARY) HYPERTENSION (5) Parkinsons disease Status: Chronic Code(s): G20 - PARKINSON'S DISEASE - Note Participants: patient, family, palliative care Summary: Palliative care has addressed Advanced Care Planning. The diagnosis, prognosis and goals of care were discussed. Appropriate forms and documentation to accomplish the goals of care were discussed. All questions were answered. *Confirmed DNAR status *Patient to hospital to visit with patient and complete OOHDNAR. S Emmanuel registrar assisted. Palliative care will sign off as Directives were addressed. Please reconsult if we can further assist in more extensive conversations related to Goal of Care, prognosis disease assist, symptom management. Time Spent (mins): 15
--- NOTE | 2020-11-10 11:55 | PQF ---
CLINICAL DOCUMENTATION CLARIFICATION FORM: Dear Dr. AUTUMN LOWERY Date: 11-10-20 Please exercise your independent, professional judgment in responding to the clarification form. Clinical indicators are provided on the bottom of this form for your review. Please check appropriate box(es): [ ] Encephalopathy: Type: [ ] Acute [ ] Subacute [ x ] Chronic Etiology: [ ] Hypertensive [ ] Metabolic [ ] Toxic [ x ] Unspecified [ ] Other (please specify) [ ] Transient Alteration of Awareness [ ] Other diagnosis [ ] Unable to determine In addition, please specify: Present on Admission (POA): [ ] Yes [ ] No [ ] Unable to determine For continuity of documentation, please document condition throughout progress notes and discharge summary. Thank You. To be completed by CDI/Coding staff for physician review: CLINICAL INDICATORS - SIGNS / SYMPTOMS / LABS / RESULTS AND LOCATION IN EMR: ER NOTES 11-07-20: NEAR SYNCOPE, ALTERED MENTAL STATUS H&P 11-07-20: PATIENTS ALTERED MENTAL STATUS, PT RECENT[facility]2020 AFTER UNDERGOING A TURP, SINCE D/C, THE PATIENT HAS BEEN CONFUSED, THERE IS MENTATION OF VISUAL HALLUCINATIONS AND GENERAL WEAKNESS, PLAN: AMS, NEAR SYNCOPE, HTN, CKD 3, DM 2, PARKINSON DISEASE CONSULT DR. MULLINS 11-08-20: AMS FOLLOWING SURGERY, MOST LIKELY CAUSES WOULD BE INFECTIOUS CAUSE SUCH UNROOFING OF PROSTATITIS OR UTI RISK FACTORS / RESULTS AND LOCATION IN EMR: H&P 11-07-20: PATIENTS ALTERED MENTAL STATUS, PT RECENTLY D/C FROM [facility] ON 09-04-2020 AFTER UNDERGOING A TURP, SINCE D/C, THE PATIENT HAS BEEN CONFUSED, THERE IS MENTATION OF VISUAL HALLUCINATIONS AND GENERAL WEAKNESS, PLAN: AMS, NEAR SYNCOPE, HTN, CKD 3, DM 2, PARKINSON DISEASE CONSULT DR. MULLINS 11-08-20: AMS FOLLOWING SURGERY, MOST LIKELY CAUSES WOULD BE INFECTIOUS CAUSE SUCH UNROOFING OF PROSTATITIS OR UTI TREATMENTS / RESULTS AND LOCATION IN EMR: ER 11-07-12: NS IVF MAR: 11-09-20: APRESOLINE, NORVASC, COZAAR CDS Signature: Ashlie Haq Phone #: [phone] Date/Time: 12-15-20 This is a permanent part of the Medical Record [facility]
[2020-11-10] MEDS: HumaLOG 300 UNITS/3 ML VIAL SC PRN ×2 (11:57→17:06)
[2020-11-10] MEDS ORDERED: Potassium Bicarbonate/Cit Ac 20 MEQ TAB PO SCH (15:15)
--- NOTE | 2020-11-10 15:25 | PDOC.HOSPP ---
- Subjective Encounter Date: 11/10/20 Encounter Time: 02:30 Subjective: Patient at bedside. He still have a serosanguineous fluid in the Oconnor bag. It appears that they want him to go to the residential facility. - Objective Vital Signs & Weight: Vital Signs (12 hours) Temp Pulse Pulse Pulse Resp BP BP 11/10/20 14:11 59 L 133/63 11/10/20 11:55 97.8 F 58 L 18 11/10/20 10:25 64 56 L 175/78 H 11/10/20 08:05 97.6 F 60 18 11/10/20 04:41 11/10/20 04:00 98.3 F 59 L 18 BP BP Pulse Ox Pulse Ox Pulse Ox 11/10/20 14:11 11/10/20 11:55 134/63 94 L 11/10/20 10:25 177/78 H 94 L 93 L 11/10/20 08:05 177/79 H 95 11/10/20 04:41 146/67 H 11/10/20 04:00 190/79 H 96 Weight Admit Weight 204 lb Weight 199 lb 6.4 oz I&O: 11/09/20 11/10/20 11/11/20 06:59 06:59 06:59 Intake Total 910 1890 Output Total 1650 1100 Balance -740 790 Result Diagrams: 11/08/20 03:53 11/10/20 04:02 Additional Labs: Accuchecks 11/10/20 11/10/20 11/09/20 10:31 05:01 20:19 POC Glucose 218 H 194 H 266 H 11/09/20 17:06 POC Glucose 317 H Hospitalist ROS - Medication Medications: Active Medications Generic Name Dose Route Start Last Admin Trade Name Freq PRN Reason Stop Dose Admin Amlodipine Besylate 5 mg 11/08/20 21:00 11/10/20 09:00 Amlodipine 5 Mg Tab PO 5 mg BID MANJULA Administration Bisacodyl 10 mg 11/07/20 22:58 11/10/20 08:59 Bisacodyl 5 Mg Tab PO 10 mg DAILYPRN PRN Administration Constipation Ergocalciferol 1.25 mg 11/08/20 09:00 11/08/20 10:04 Ergocalciferol 1.25 Mg(50,000 Units) Cap PO 1.25 mg Q7DAYS MANJULA Administration Hydralazine HCl 10 mg 11/08/20 13:08 11/09/20 14:38 Hydralazine 20 Mg/Ml Vial SLOW IVP 10 mg Q4H PRN Administration SBP>150 Hydralazine HCl 25 mg 11/09/20 15:00 11/10/20 14:11 Hydralazine 25 Mg Tab PO 25 mg TID MANJULA Administration Insulin Glargine 10 units/ 0.1 mls @ 0 mls/hr 11/08/20 21:00 11/09/20 20:22 Miscellaneous Medication SC 0.1 mls QPM MANJULA Administration Insulin Human Lispro 0 units 11/07/20 21:49 11/09/20 18:09 Humalog 300 Units/3 Ml Vial SC 4 unit .BEDTIME SLIDING SC PRN Administration Bedtime Correctional Scale Insulin Human Lispro 0 units 11/10/20 11:00 11/10/20 11:57 Humalog 300 Units/3 Ml Vial SC 6 unit .AGGRESSIVE SLIDING PRN Administration AGGRESSIVE SLIDING SCALE Protocol Iron/Minerals/Multivitamins 1 tab 11/08/20 09:00 11/10/20 09:00 Multivitamin W/ Minerals 1 Tab PO 1 tab DAILY MANJULA Administration Loratadine 10 mg 11/09/20 09:00 11/10/20 09:00 Loratadine 10 Mg Tab PO 10 mg DAILY MANJULA Administration Losartan Potassium 100 mg 11/10/20 09:00 11/10/20 08:59 Losartan 25 Mg Tab PO 100 mg DAILY MANJULA Administration Pantoprazole Sodium 40 mg 11/08/20 09:00 11/10/20 09:00 Pantoprazole 40 Mg Tab PO 40 mg DAILY MANJULA Administration Carbidopa/Levodopa/ 0 each 11/08/20 17:00 11/10/20 12:03 Entacapone 50-200- PO 1 each 200 Mg Tablet QID MANJULA Administration Dulaglutide [ 0 each 11/09/20 16:00 11/09/20 15:59 Trulicity] 1.5 Mg/0. SC 1 each 5 Ml Pen.Injctr Q7D MANJULA Administration Senna/Docusate Sodium 2 tab 11/07/20 22:58 11/09/20 18:03 Senokot S 8.6-50 Mg Tab PO 2 tab BID PRN Administration Constipation Simvastatin 10 mg 11/08/20 21:00 11/09/20 20:22 Simvastatin 10 Mg Tab PO 10 mg HS MANJULA Administration Sodium Chloride 10 ml 11/10/20 09:00 11/10/20 09:00 Flush - Normal Saline 10 Ml Syringe IVF 10 ml Q12HR MANJULA Administration Tamsulosin HCl 0.4 mg 11/08/20 09:00 11/10/20 09:00 Tamsulosin Hcl 0.4 Mg Cap PO 0.4 mg QAM MANJULA Administration - Exam General Appearance: NAD, awake alert, ill appearing Eye: PERRL, scleral icterus ENT: normocephalic atraumatic Neck: supple Heart: RRR, normal peripheral pulses Respiratory: CTAB, normal chest expansion Gastrointestinal: soft, normal bowel sounds Neurological: cranial nerve grossly intact, no focal deficits Psychiatric: oriented to person, flat affect Hosp A/P - Plan 80/M with PMH prostate/bladder CA, PD presents for AMS. 1) Altered mental status CT brain no acute process EKG NSR, first-degree AV block. Troponin 0.017, 0.018, 0.012. D-dimer 0.66, CTA no PE WBC 5.6, UA positive leukocyte esterase, WBCs (2) Near syncope Probably multifactorial with poor p.o. intake and being on hypertensive medications (6) DM2 (diabetes mellitus, type 2) Status: Chronic (7) Parkinsons disease Code(s): G20 - PARKINSON'S DISEASE Status: Chronic - Asymptomatic bacteriuria with recent TURP procedure Hematuria also related likely to the procedure Proteinuria Hematuria --Just follow the clinical course #Altered mental status--multifactorial with recent TURP procedure on last Monday and poor p.o. intake leading to dehydration and being on Bactrim as well as losartan Status post TURP on 11/[address] Mcnulty. Started on Bactrim and oxybutynin at that time.--------------> no antibiotics at this time. No fever no white count clinical monitoring for now. -Urology following--medical management and supportive measures --- I will follow with the culture. Unimpressive ammonia, negative drug screen, normal TSH level. We will also check vitamin D B12 and folate level. #BPH History of prostate and bladder cancer. Status post TURP with bladder biopsy on 11/[address] Mcnulty. -He has a Oconnor that has serosanguineous fluid. #Hypertension Presented hypertensive. Takes amlodipine and losartan at home. Restart home medications. Add hydralazine as needed -Today's blood pressure seems to be a on the high end -but that was normalized #CKD stage III Chronic, appears stable. Presented creatinine 1.61. Was 1.42 on 10/29/2020. Was taking Bactrim at home. We will continue to monitor. #DM2 Presented BG 248. Takes Tresiba 10 units and Trulicity at home. Restart home medications. We will add mild ISS. Accu-Cheks AC at bedtime. #Parkinson's disease Takes carbidopa levodopa at home. Hopefully his mentation would be back to baseline. -I do not see any acute source/etiology including infectious origin for his mentation change. Elec trolytes panel is in the normal range. Imaging studies are negative including CT of the head that does not show any abnormalities.. CODE STATUS discussed and the daughter wants him to be DNR. Plan for rehab/residential facility placement. Possibly rehab tomorrow. Will check with the Dr. Mcnulty regarding his Oconnor.-------------------> He is out of office until November 16 and I will check with the on-call urologist tomorrow.
[2020-11-10] MEDS: Insulin Glargine 10 UNITS in Pre-Filled Syringe 1 EACH SC SCH (21:33)
[2020-11-10] MEDS: Simvastatin 10 MG TAB PO SCH (21:34)
[2020-11-11] MEDS: HumaLOG 300 UNITS/3 ML VIAL SC PRN ×2 (06:37→11:47)
[2020-11-11] MEDS: Amlodipine 5 MG TAB PO SCH (08:19)
[2020-11-11] MEDS: hydrALAZINE 25 MG TAB PO SCH ×2 (08:20→16:02)
[2020-11-11] MEDS: Losartan 25 MG TAB PO SCH (08:20)
[2020-11-11] MEDS: Multivitamin W/ Minerals 1 TAB PO SCH (08:21)
[2020-11-11] MEDS: Tamsulosin HCl 0.4 MG CAP PO SCH (09:13)
[2020-11-11] MEDS: Loratadine 10 MG TAB PO SCH (09:13)
--- NOTE | 2020-11-11 15:48 | PDOC.HOSPP ---
- Subjective Encounter Date: 11/11/20 Encounter Time: 10:40 - Objective Vital Signs & Weight: Vital Signs (12 hours) Temp Pulse Pulse Pulse Resp BP BP 11/11/20 11:38 97.6 F 72 18 11/11/20 08:40 70 60 136/68 11/11/20 08:20 60 142/64 H 11/11/20 08:19 75 142/64 H 11/11/20 08:15 97.6 F 60 20 11/11/20 05:55 11/11/20 05:37 11/11/20 04:00 98.0 F 66 20 BP BP BP Pulse Ox Pulse Ox Pulse Ox 11/11/20 11:38 143/60 H 95 11/11/20 08:40 142/64 H 97 97 11/11/20 08:20 11/11/20 08:19 11/11/20 08:15 142/64 H 97 11/11/20 05:55 126/64 11/11/20 05:37 151/57 H 11/11/20 04:00 181/81 H 92 L Weight Admit Weight 204 lb Weight 199 lb 3 oz I&O: 11/10/20 11/11/20 11/12/20 06:59 06:59 06:59 Intake Total 1890 840 240 Output Total 1100 700 Balance 790 140 240 Result Diagrams: 11/08/20 03:53 11/10/20 04:02 Additional Labs: Accuchecks 11/11/20 11/11/20 11/10/20 11:02 06:22 20:46 POC Glucose 198 H 162 H 181 H 11/10/20 16:43 POC Glucose 239 H Hospitalist ROS - Medication Medications: Active Medications Generic Name Dose Route Start Last Admin Trade Name Freq PRN Reason Stop Dose Admin Amlodipine Besylate 5 mg 11/08/20 21:00 11/11/20 08:19 Amlodipine 5 Mg Tab PO 5 mg BID MANJULA Administration Bisacodyl 10 mg 11/07/20 22:58 11/10/20 08:59 Bisacodyl 5 Mg Tab PO 10 mg DAILYPRN PRN Administration Constipation Ergocalciferol 1.25 mg 11/08/20 09:00 11/08/20 10:04 Ergocalciferol 1.25 Mg(50,000 Units) Cap PO 1.25 mg Q7DAYS MANJULA Administration Hydralazine HCl 10 mg 11/08/20 13:08 11/09/20 14:38 Hydralazine 20 Mg/Ml Vial SLOW IVP 10 mg Q4H PRN Administration SBP>150 Hydralazine HCl 25 mg 11/09/20 15:00 11/11/20 08:20 Hydralazine 25 Mg Tab PO 25 mg TID MANJULA Administration Insulin Glargine 10 units/ 0.1 mls @ 0 mls/hr 11/08/20 21:00 11/10/20 21:33 Miscellaneous Medication SC 0.1 mls QPM MANJULA Administration Insulin Human Lispro 0 units 11/07/20 21:49 11/09/20 18:09 Humalog 300 Units/3 Ml Vial SC 4 unit .BEDTIME SLIDING SC PRN Administration Bedtime Correctional Scale Insulin Human Lispro 0 units 11/10/20 11:00 11/11/20 11:47 Humalog 300 Units/3 Ml Vial SC 3 unit .AGGRESSIVE SLIDING PRN Administration AGGRESSIVE SLIDING SCALE Protocol Iron/Minerals/Multivitamins 1 tab 11/08/20 09:00 11/11/20 08:21 Multivitamin W/ Minerals 1 Tab PO 1 tab DAILY MANJULA Administration Loratadine 10 mg 11/09/20 09:00 11/11/20 09:13 Loratadine 10 Mg Tab PO 10 mg DAILY MANJULA Administration Losartan Potassium 100 mg 11/10/20 09:00 11/11/20 08:20 Losartan 25 Mg Tab PO 100 mg DAILY MANJULA Administration Pantoprazole Sodium 40 mg 11/08/20 09:00 11/11/20 09:13 Pantoprazole 40 Mg Tab PO 40 mg DAILY MANJULA Administration Carbidopa/Levodopa/ 0 each 11/08/20 17:00 11/11/20 13:16 Entacapone 50-200- PO 1 each 200 Mg Tablet QID MANJULA Administration Dulaglutide [ 0 each 11/09/20 16:00 11/09/20 15:59 Trulicity] 1.5 Mg/0. SC 1 each 5 Ml Pen.Injctr Q7D MANJULA Administration Senna/Docusate Sodium 2 tab 11/07/20 22:58 11/09/20 18:03 Senokot S 8.6-50 Mg Tab PO 2 tab BID PRN Administration Constipation Simvastatin 10 mg 11/08/20 21:00 11/10/20 21:34 Simvastatin 10 Mg Tab PO 10 mg HS MANJULA Administration Sodium Chloride 10 ml 11/10/20 09:00 11/11/20 08:21 Flush - Normal Saline 10 Ml Syringe IVF 10 ml Q12HR MANJULA Administration Tamsulosin HCl 0.4 mg 11/08/20 09:00 11/11/20 09:13 Tamsulosin Hcl 0.4 Mg Cap PO 0.4 mg QAM MANJULA Administration - Exam General Appearance: awake alert Eye: PERRL ENT: normocephalic atraumatic Neck: supple Heart: RRR Respiratory: CTAB, normal chest expansion Gastrointestinal: soft, normal bowel sounds Neurological: no focal deficits Psychiatric: A&O x 3 Hosp A/P - Plan 80/M with PMH prostate/bladder CA, PD presents for AMS. 1) Altered mental status CT brain no acute process EKG NSR, first-degree AV block. Troponin 0.017, 0.018, 0.012. D-dimer 0.66, CTA no PE WBC 5.6, UA positive leukocyte esterase, WBCs (2) Near syncope Probably multifactorial with poor p.o. intake and being on hypertensive medications (6) DM2 (diabetes mellitus, type 2) Status: Chronic (7) Parkinsons disease Code(s): G20 - PARKINSON'S DISEASE Status: Chronic - Asymptomatic bacteriuria with recent TURP procedure Hematuria also related likely to the procedure Proteinuria Hematuria --Just follow the clinical course #Altered mental status--multifactorial with recent TURP procedure on last Monday and poor p.o. intake leading to dehydration and being on Bactrim as well as losartan Status post TURP on 11/[address] Mcnulty. Started on Bactrim and oxybutynin at that time.--------------> no antibiotics at this time. No fever no white count clinical monitoring for now. -Urology following--medical management and supportive measures --- I will follow with the culture. Unimpressive ammonia, negative drug screen, normal TSH level. We will also check vitamin D B12 and folate level. #BPH History of prostate and bladder cancer. Status post TURP with bladder biopsy on 11/[address] Mcnulty. -He has a [place] that has serosanguineous fluid. #Hypertension Presented hypertensive. Takes amlodipine and losartan at home. Restart home medications. Add hydralazine as needed -Today's blood pressure seems to be a on the high end -but that was normalized #CKD stage III Chronic, appears stable. Presented creatinine 1.61. Was 1.42 on 10/29/2020. Was taking Bactrim at home. We will continue to monitor. #DM2 Presented BG 248. Takes Tresiba 10 units and Trulicity at home. Restart home medications. We will add mild ISS. Accu-Cheks AC at bedtime. #Parkinson's disease Takes carbidopa levodopa at home. Hopefully his mentation would be back to baseline. -I do not see any acute source/etiology including infectious origin for his mentation change. Electrolytes panel is in the normal range. Imaging studies are negative including CT of the head that does not show any abnormalities.. CODE STATUS discussed and the daughter wants him to be DNR. Plan for rehab/shelter facility placement. Possibly rehab tomorrow. Will check with the Dr. Mcnulty regarding his [place].-------------------> He is out of office until November 16 and I will check with the on-call urologist tomorrow.
--- NOTE | 2020-11-11 15:50 | PDOC.DS.DS ---
Provider - Provider Date of Admission: 11/07/20 17:55 Admitting Provider: Geraldo Aragon DO Primary Care Physician: Stanley De La Torre MD Course - Hospital Course Hospital Course: 80-year-old male presented with 80/M with PMH prostate/bladder CA, PD presents for AMS. 1) Altered mental status CT brain no acute process EKG NSR, first-degree AV block. Troponin 0.017, 0.018, 0.012. D-dimer 0.66, CTA no PE WBC 5.6, UA positive leukocyte esterase, WBCs (2) Near syncope Probably multifactorial with poor p.o. intake and being on hypertensive medicati ons (6) DM2 (diabetes mellitus, type 2) Status: Chronic (7) Parkinsons disease Code(s): G20 - PARKINSON'S DISEASE Status: Chronic - Asymptomatic bacteriuria with recent TURP procedure Hematuria also related likely to the procedure Proteinuria Hematuria-NO ABX #Altered mental status--multifactorial with recent TURP procedure on last Monday and poor p.o. intake leading to dehydration and being on Bactrim as well as losartan Status post TURP on 11/[address] Mcnulty. Started on Bactrim and oxybutynin at that time.--------------> no antibiotics at this time. No fever no white count clinical monitoring for now. -Urology following--medical management and supportive measures --- I will follow with the culture. Unimpressive ammonia, negative drug screen, normal TSH level. We will also check vitamin D B12 and folate level. #BPH History of prostate and bladder cancer. Status post TURP with bladder biopsy on 11/[address] Mcnulty. -He has a [place] that has serosanguineous fluid. #Hypertension Presented hypertensive. Takes amlodipine and losartan at home. #CKD stage III Chronic, appears stable. Presented creatinine 1.61. Was 1.42 on 10/29/2020. #Parkinson's disease Takes carbidopa levodopa at home. I tried to reach Dr. Mcnulty. He is out of station until November 16. Patient can be discharged to inpatient rehab with the [place] and he can follow with the urologist in the outpatient clinic IN 1 WEEK. Discharge time over 30 minutes Resuscitation Status: 11/08/20 12:35 Resuscitation Status Routine Resuscitation Status: DNAR: NO Resuscitation Discussed with: daughter - Labs Lab Results: 11/08/20 03:53 11/10/20 04:02 Abnormal Lab Results - Last 48 hrs 11/10/20 04:02: Potassium 3.1 L, Creatinine 1.49 H 11/10/20 04:02: Vitamin B12 171 L, 25-OH Vitamin D Total 23.3 L Microbiology - Entire Visit 11/07/20 15:24 Urine altamirano catheter Urine Culture - Final NO GROWTH AT 36 HOURS - Physical Exam Vitals: Vital Signs (12 hours) Temp Pulse Pulse Pulse Resp BP BP 11/11/20 11:38 97.6 F 72 18 11/11/20 08:40 70 60 136/68 11/11/20 08:20 60 142/64 H 11/11/20 08:19 75 142/64 H 11/11/20 08:15 97.6 F 60 20 11/11/20 05:55 11/11/20 05:37 11/11/20 04:00 98.0 F 66 20 BP BP BP Pulse Ox Pulse Ox Pulse Ox 11/11/20 11:38 143/60 H 95 11/11/20 08:40 142/64 H 97 97 11/11/20 08:20 11/11/20 08:19 11/11/20 08:15 142/64 H 97 11/11/20 05:55 126/64 11/11/20 05:37 151/57 H 11/11/20 04:00 181/81 H 92 L Weight Admit Weight 204 lb Weight 199 lb 3 oz Physical Exam: The patient was seen and examined on the day of discharge. Plan - Discharge Medications Home Medications: Medication Instructions Recorded Confirmed Type Amlodipine [Norvasc] 5 mg PO DAILY 11/02/20 11/07/20 History Carbidopa/Levodopa/Entacapone 1 each PO QID 11/02/20 11/07/20 History [Carbidopa-Levodopa 200 mg-Enta] Dulaglutide [Trulicity] 1.5 mg SC Q7D 11/02/20 11/08/20 History Ergocalciferol (Vitamin D2) 50,000 unit PO Q7DAYS 11/02/20 11/07/20 History [Vitamin D2] Insulin Degludec [Tresiba 10 unit SQ QPM 11/02/20 11/07/20 History Flextouch U-100] Losartan Potassium 50 mg PO DAILY 11/02/20 11/07/20 History Multivit-Min/FA/Lycopen/Lutein 1 each PO DAILY 11/02/20 11/07/20 History [Men 50 Plus Multivitamin Tab] Pantoprazole Sodium 40 mg PO DAILY 11/02/20 11/07/20 History Pregabalin [Lyrica] 150 mg PO TID 11/02/20 11/07/20 History Simvastatin 10 mg PO HS 11/02/20 11/07/20 History Tamsulosin HCl 0.4 mg PO QAM 11/02/20 11/07/20 History Valsartan 40 mg PO DAILY 11/02/20 11/07/20 History diphenhydrAMINE HCl 50 mg PO QAM PRN 11/02/20 11/07/20 History [Diphenhydramine HCl] Oxybutynin [Ditropan] 1 tab PO BID 11/07/20 11/07/20 History Loratadine [Allergy Relief] 10 mg PO DAILY 11/08/20 11/08/20 History Allergies: No Known Allergies Allergy (Verified 11/02/20 11:03) - Discharge Instructions Discharge Instructions:: Follow-up in 1 to 2 weeks Activity:: Activity as Tolerated Nourishment:: Heart Healthy Diet - Follow up Plan Referrals: [facility], [facility] [Other] (inpatient rehab admit.) [facility] [Outside] Stanley De La Torre MD [Primary Care Provider] - (Please call to schedule a follow up appointment) Zulay Herrera MD [Active] - (Accepting pcp at the [facility] Disposition: REHABILITATION INPATIENT Quality - Care Measures CORE MEASURES:: N/A
[2020-11-11 15:59] VITALS: BP 153/65; TEMP 98.1
--- NOTE | 2020-11-14 10:38 | EKG ---
Test Reason : Blood Pressure : / mmHG Vent. Rate : 064 BPM Atrial Rate : 064 BPM P-R Int : 244 ms QRS Dur : 098 ms QT Int : 428 ms P-R-T Axes : 047 045 034 degrees QTc Int : 441 ms Sinus rhythm with 1st degree A-V block Otherwise normal ECG Confirmed by JUDY MENESES, PATRICE Sprague ([id number]), editor producer SAUL PENN ([id number]) on 11/14/2020 10:38:23 AM Referred By: Confirmed By:PATRICE KIM MD
== END 2020-11-11 16:40 | DRG 948 ==
LOC: ERS 13:43 → 2NO 17:55
PROVIDERS: ADMIT Family Medicine; ATTEND Internal Medicine
DX: R41.82 Altered mental status, unspecified (principal); G93.40 Encephalopathy, unspecified; I12.9 Hypertensive chronic kidney disease with stage 1 through stage 4 chronic kidney disease, or unspecified chronic kidney disease; Z66 Do not resuscitate; Z51.5 Encounter for palliative care; G20 Parkinson's disease; N18.30 Chronic kidney disease, stage 3 unspecified; E78.5 Hyperlipidemia, unspecified; N40.0 Benign prostatic hyperplasia without lower urinary tract symptoms; E11.22 Type 2 diabetes mellitus with diabetic chronic kidney disease; E86.0 Dehydration; Z90.49 Acquired absence of other specified parts of digestive tract; Z85.46 Personal history of malignant neoplasm of prostate; Z85.51 Personal history of malignant neoplasm of bladder; Z87.891 Personal history of nicotine dependence; Z79.899 Other long term (current) drug therapy; Z79.4 Long term (current) use of insulin
CPT/HCPCS: 36415; 36416; 70450; 71045; 71275; 80048; 80053; 80306; 80307; 81003; 81015; 82140; 82306; 82607; 82746; 83735; 84443; 84484; 85025; 85379; 87086; 87635; 93005; J0360; J1815; Q9967; U0003

== ENCOUNTER 2020-11-29 08:29 | Emergency (ER) | payer MEDICARE, BC | END 2020-11-29 11:05 | disposition home or self-care (01) | LOC: ERS 08:29 | DX: T83.091A Other mechanical complication of indwelling urethral catheter, initial encounter (principal); I12.9 Hypertensive chronic kidney disease with stage 1 through stage 4 chronic kidney disease, or unspecified chronic kidney disease; N18.30 Chronic kidney disease, stage 3 unspecified; M86.9 Osteomyelitis, unspecified; Z85.46 Personal history of malignant neoplasm of prostate; Z85.51 Personal history of malignant neoplasm of bladder; Z87.891 Personal history of nicotine dependence | CPT/HCPCS: 51702; 51798 ==

== ENCOUNTER 2021-05-30 00:16 | Inpatient (IN) | payer OTHER, MEDICARE, BC ==
[2021-05-30] MEDS ORDERED: Fentanyl 100 MCG/2 ML VIAL ONE ×3 (01:30→10:06)
[2021-05-30 02:10] LABS: #Eosinphils 0.1 thou/uL (0.0-0.7); #Lymphocytes 0.9 thou/uL (1.20-3.40); #Monocytes 0.5 thou/uL (0.11-0.59); #Neutrophils 5.9 thou/uL (1.40-6.50); %Basophils 0.3 % (0.0-1.0); %Eosinophils 1.6 % (0.0-10.0); %Monocytes 6.1 % (0.0-10.0); Hemoglobin 15.3 g/dL (14.0-18.0); Mean Corpuscular HGB CONC 33.5 g/dL (32.0-36.0); Mean Corpuscular Hemoglobin 30.3 pg (27.0-31.0); Mean Corpuscular Volume 90.6 fL (78.0-98.0); Mean Platelet Volume 8.1 fL (7.4-10.4); Platelet Count 152 thou/uL (130-400); RBC Distribution Width 13.6 % (11.5-14.5); Red Blood Cell (RBC) Count 5.03 mill/uL (4.70-6.10); White Blood Cell (WBC) Count 7.4 thou/uL (4.8-10.8)
[2021-05-30 02:36] LABS: ALT (SGPT) Less than 7 U/L (8-55); AST (SGOT) 13 U/L (5-34); Albumin 3.9 g/dL (3.4-4.8); Alkaline Phosphatase 86 U/L (40-110); Anion Gap 19 mmol/L (10-20); BUN (Urea Nitrogen) 18 mg/dL (8.4-25.7); Bilirubin, Total 0.6 mg/dL (0.2-1.2); Calc. Creatinine Clearance 0 mL/min (70-130); Calcium 9.2 mg/dL (7.8-10.44); Carbon Dioxide 20 mmol/L (23-31); Chloride 105 mmol/L (98-107); Globulin 2.6 g/dL (2.4-3.5); Glucose 184 mg/dL (83-110); Potassium 3.9 mmol/L (3.5-5.1); Protein, Total 6.5 g/dL (5.8-8.1); Sodium 140 mmol/L (136-145)
[2021-05-30] MEDS ORDERED: Ondansetron PF 4 MG/2 ML Vial IVP PRN (03:00)
[2021-05-30] MEDS ORDERED: traMADol HCl 50 MG TAB PO PRN ×2 (03:00)
[2021-05-30] MEDS ORDERED: Cyclobenzaprine 10 MG TAB PO PRN (03:00)
[2021-05-30] MEDS ORDERED: Ondansetron ODT 4 MG TAB PO PRN (03:00)
[2021-05-30] MEDS ORDERED: Dextrose 5% in Water 1,000 ML IV PRN (03:00)
[2021-05-30] MEDS ORDERED: Dextrose 50% Abboject 50 ML SYRINGE SLOW IVP PRN (03:00)
[2021-05-30] MEDS: Morphine 2 MG/ML VIAL SLOW IVP PRN ×2 (04:11→06:38)
[2021-05-30 04:27] VITALS: BMI 28.5
[2021-05-30] MEDS: Sodium Chloride 0.9% 1,000 ML IV SCH ×2 (04:39→17:58)
[2021-05-30] MEDS: Acetaminophen 325 MG TAB PO SCH ×3 (04:59→23:53)
[2021-05-30] MEDS: Ibuprofen 200 MG TAB PO SCH ×3 (05:00→21:00)
[2021-05-30] MEDS ORDERED: CEFAZOLIN 2 GM in Premix Bag 1 BAG IVPB SCH ×2 (08:15→14:00)
[2021-05-30] MEDS ORDERED: Phenylephrine 10 MG/ML VIAL ONE (09:10)
[2021-05-30] MEDS ORDERED: Lidocaine 1% PF 5 ML VIAL ONE (10:21)
[2021-05-30] MEDS ORDERED: PROPOFOL 200 MG/20 ML VIAL ONE (10:21)
[2021-05-30] MEDS ORDERED: Glycopyrrolate 0.2 MG/ML 5 ML SYRINGE ONE (10:21)
[2021-05-30] MEDS ORDERED: Rocuronium Bromide 10 MG/ML (10ML VIAL) ONE (10:21)
[2021-05-30] MEDS ORDERED: Albumin 25% 0 ML ONE (11:54)
[2021-05-30] MEDS ORDERED: Albumin 5% 500 ML ONE (11:57)
[2021-05-30 15:21] LABS: SARS-CoV-2 PCR by NAA Not Detected (NotDetected)
[2021-05-30] MEDS: Famotidine 20 MG TAB PO SCH (15:52)
[2021-05-30] MEDS: Polyethylene Glycol 3350 17 GM Packet PO SCH (15:53)
[2021-05-30] MEDS: Senokot S 8.6-50 MG TAB PO SCH ×2 (15:53→21:01)
[2021-05-30] MEDS ORDERED: Carbidopa/Levodopa CR 50-200 mg Tablet PO SCH (16:15)
[2021-05-30] MEDS: Pregabalin 75 MG CAP PO SCH ×2 (16:30→21:01)
[2021-05-30] MEDS: CEFAZOLIN 2 GM in Premix Bag 1 BAG IVPB SCH (17:56)
[2021-05-30] MEDS: Carbidopa/Levodopa CR 50-200 mg Tablet PO SCH (17:57)
[2021-05-30] MEDS: Simvastatin 10 MG TAB PO SCH (21:00)
[2021-05-30] MEDS: Tamsulosin HCl 0.4 MG CAP PO SCH (21:02)
[2021-05-30] MEDS: Melatonin 3 MG TAB PO SCH (21:02)
[2021-05-30] MEDS: HumaLOG 300 UNITS/3 ML VIAL SC PRN (21:05)
[2021-05-31] MEDS: CEFAZOLIN 2 GM in Premix Bag 1 BAG IVPB SCH (03:17)
[2021-05-31 05:45] LABS: #Lymphocytes 0.5 thou/uL (1.20-3.40); #Monocytes 1.2 thou/uL (0.11-0.59); #Neutrophils 7.1 thou/uL (1.40-6.50); %Eosinophils 0.3 % (0.0-10.0); %Lymphocytes 5.7 % (21.0-51.0); %Monocytes 13.1 % (0.0-10.0); %Neutrophils 80.9 % (42.0-75.0); Hemoglobin 9.5 g/dL (14.0-18.0); Mean Corpuscular HGB CONC 33.8 g/dL (32.0-36.0); Mean Corpuscular Hemoglobin 31.1 pg (27.0-31.0); Mean Corpuscular Volume 91.9 fL (78.0-98.0); Mean Platelet Volume 8.4 fL (7.4-10.4); Platelet Count 138 thou/uL (130-400); RBC Distribution Width 13.6 % (11.5-14.5); Red Blood Cell (RBC) Count 3.06 mill/uL (4.70-6.10); White Blood Cell (WBC) Count 8.8 thou/uL (4.8-10.8)
[2021-05-31 05:50] LABS: Anion Gap 14 mmol/L (10-20); BUN (Urea Nitrogen) 26 mg/dL (8.4-25.7); Calc. Creatinine Clearance 42 mL/min (70-130); Calcium 8.2 mg/dL (7.8-10.44); Carbon Dioxide 22 mmol/L (23-31); Chloride 107 mmol/L (98-107); Glucose 275 mg/dL (83-110); Magnesium 1.3 mg/dL (1.6-2.6); Phosphorus 4.1 mg/dL (2.3-4.7); Potassium 4.4 mmol/L (3.5-5.1); Sodium 139 mmol/L (136-145)
[2021-05-31] MEDS: HumaLOG 300 UNITS/3 ML VIAL SC PRN ×4 (06:22→21:11)
[2021-05-31] MEDS: Acetaminophen 325 MG TAB PO SCH (06:22)
[2021-05-31] MEDS: Ibuprofen 200 MG TAB PO SCH (06:23)
[2021-05-31] MEDS: Carbidopa/Levodopa CR 50-200 mg Tablet PO SCH ×4 (06:24→18:22)
[2021-05-31] MEDS: Polyethylene Glycol 3350 17 GM Packet PO SCH (09:00)
[2021-05-31] MEDS ORDERED: Valsartan 80 MG TAB PO SCH (09:00)
[2021-05-31] MEDS: Senokot S 8.6-50 MG TAB PO SCH ×2 (09:00→21:13)
[2021-05-31] MEDS: Amlodipine 5 MG TAB PO SCH (09:01)
[2021-05-31] MEDS: Losartan 25 MG TAB PO SCH (09:01)
[2021-05-31] MEDS: Famotidine 20 MG TAB PO SCH (09:01)
[2021-05-31] MEDS: Pregabalin 75 MG CAP PO SCH ×3 (09:01→21:12)
[2021-05-31] MEDS ORDERED: Sodium Chloride 0.9% 1,000 ML IV SCH (10:15)
[2021-05-31] MEDS: Acetaminophen 500 MG TAB PO SCH ×2 (11:55→18:22)
[2021-05-31 18:04] LABS: Hemoglobin 8.4 g/dL (14.0-18.0); Platelet Count 122 thou/uL (130-400)
[2021-05-31] MEDS: Tamsulosin HCl 0.4 MG CAP PO SCH (21:12)
[2021-05-31] MEDS: Melatonin 3 MG TAB PO SCH (21:13)
[2021-05-31] MEDS: Simvastatin 10 MG TAB PO SCH (21:13)
[2021-06-01] MEDS: Acetaminophen 500 MG TAB PO SCH ×4 (03:33→17:48)
[2021-06-01 05:18] LABS: #Eosinphils 0.1 thou/uL (0.0-0.7); #Lymphocytes 0.6 thou/uL (1.20-3.40); #Monocytes 0.7 thou/uL (0.11-0.59); #Neutrophils 3.9 thou/uL (1.40-6.50); %Basophils 0.1 % (0.0-1.0); %Eosinophils 2.3 % (0.0-10.0); %Lymphocytes 11.7 % (21.0-51.0); %Monocytes 12.6 % (0.0-10.0); %Neutrophils 73.3 % (42.0-75.0); Hemoglobin 8.6 g/dL (14.0-18.0); Mean Corpuscular HGB CONC 33.1 g/dL (32.0-36.0); Mean Corpuscular Hemoglobin 30.8 pg (27.0-31.0); Mean Corpuscular Volume 93.1 fL (78.0-98.0); Mean Platelet Volume 8.3 fL (7.4-10.4); Platelet Count 118 thou/uL (130-400); RBC Distribution Width 13.4 % (11.5-14.5); White Blood Cell (WBC) Count 5.3 thou/uL (4.8-10.8)
[2021-06-01 05:23] LABS: Anion Gap 14 mmol/L (10-20); BUN (Urea Nitrogen) 36 mg/dL (8.4-25.7); Calc. Creatinine Clearance 36 mL/min (70-130); Calcium 8.1 mg/dL (7.8-10.44); Carbon Dioxide 22 mmol/L (23-31); Chloride 108 mmol/L (98-107); Glucose 187 mg/dL (83-110); Magnesium 1.4 mg/dL (1.6-2.6); Phosphorus 3.3 mg/dL (2.3-4.7); Potassium 4.4 mmol/L (3.5-5.1); Sodium 140 mmol/L (136-145)
[2021-06-01] MEDS: Carbidopa/Levodopa CR 50-200 mg Tablet PO SCH ×4 (05:44→17:49)
[2021-06-01] MEDS: HumaLOG 300 UNITS/3 ML VIAL SC PRN ×3 (05:46→17:48)
[2021-06-01] MEDS ORDERED: traMADol HCl 50 MG TAB PO PRN ×2 (08:45)
[2021-06-01] MEDS ORDERED: Sodium Chloride 0.9% 500 ML IV SCH (08:45)
[2021-06-01] MEDS ORDERED: Magnesium 2 GM/50 ML 2 GM in Premix Bag 1 BAG IVPB SCH (08:45)
[2021-06-01] MEDS: Amlodipine 5 MG TAB PO SCH (08:46)
[2021-06-01] MEDS: Pregabalin 75 MG CAP PO SCH ×2 (08:48→14:33)
[2021-06-01] MEDS: Senokot S 8.6-50 MG TAB PO SCH (08:49)
[2021-06-01] MEDS: Famotidine 20 MG TAB PO SCH (08:49)
[2021-06-01] MEDS: Losartan 25 MG TAB PO SCH (08:50)
[2021-06-01] MEDS: Polyethylene Glycol 3350 17 GM Packet PO SCH (08:51)
[2021-06-01] MEDS ORDERED: Aspirin 81 mg Enteric Coated Tablet PO SCH (09:00)
[2021-06-01] MEDS ORDERED: Ferrous Sulfate 325 MG TAB PO SCH (09:00)
[2021-06-01] MEDS ORDERED: Ascorbic Acid 500 mg Chewable Tablet PO SCH (09:00)
[2021-06-01] MEDS ORDERED: Bisacodyl 10 MG SUPP PR SCH (09:00)
[2021-06-01 14:23] LABS: Anion Gap 11 mmol/L (10-20); BUN (Urea Nitrogen) 35 mg/dL (8.4-25.7); Calc. Creatinine Clearance 39 mL/min (70-130); Carbon Dioxide 23 mmol/L (23-31); Chloride 105 mmol/L (98-107); Glucose 300 mg/dL (83-110); Magnesium 1.7 mg/dL (1.6-2.6); Phosphorus 2.8 mg/dL (2.3-4.7); Potassium 4.3 mmol/L (3.5-5.1); Sodium 135 mmol/L (136-145)
[2021-06-01 16:20] VITALS: TEMP 97.7
[2021-06-01 16:47] VITALS: BP 122/63
== END 2021-06-01 19:20 | DRG 481 ==
LOC: ERS 00:16 → SURG B 02:47
PROVIDERS: ADMIT Surgery; ATTEND Surgery
PROC: 0QSB04Z Reposition Right Lower Femur with Internal Fixation Device, Open Approach (ICD-10-PCS; principal; 2021-05-30)
DX: S72.491A Other fracture of lower end of right femur, initial encounter for closed fracture (principal); M97.01XA Periprosthetic fracture around internal prosthetic right hip joint, initial encounter; D62 Acute posthemorrhagic anemia; Z20.822 Contact with and (suspected) exposure to COVID-19; G20 Parkinson's disease; I12.9 Hypertensive chronic kidney disease with stage 1 through stage 4 chronic kidney disease, or unspecified chronic kidney disease; N18.30 Chronic kidney disease, stage 3 unspecified; Z96.653 Presence of artificial knee joint, bilateral; Z96.643 Presence of artificial hip joint, bilateral; E83.42 Hypomagnesemia; W01.0XXA Fall on same level from slipping, tripping and stumbling without subsequent striking against object, initial encounter; Z90.49 Acquired absence of other specified parts of digestive tract; Z87.891 Personal history of nicotine dependence; Z79.899 Other long term (current) drug therapy; Z86.718 Personal history of other venous thrombosis and embolism; Z85.46 Personal history of malignant neoplasm of prostate; Z85.51 Personal history of malignant neoplasm of bladder
CPT/HCPCS: 36415; 36416; 70450; 71045; 72125; 72170; 76000; 80048; 80053; 83735; 84100; 85025; 93005; 96374; 96376; C1713; J0690; J1815; J2270; J2370; J2704; J3010; J3475; P9045; P9047; U0003; U0005

== ENCOUNTER 2021-06-04 01:33 | Inpatient (IN) | payer MEDICARE, BC ==
[2021-06-11 14:31] VITALS: BMI 29.3
[2021-06-15 21:51] VITALS: BP 154/66; TEMP 97.6
== END 2021-06-15 22:10 | DRG 871 ==
LOC: ERS 01:33 → ERHOLD 05:42 → CCU 09:43 → 2NO 06-06 15:41 → T4-B 06-14 22:13
PROVIDERS: ADMIT Student in an Organized Health Care Education/Training Program; ATTEND Internal Medicine
DX: A41.9 Sepsis, unspecified organism (principal); J69.0 Pneumonitis due to inhalation of food and vomit; G92 Toxic encephalopathy; K31.0 Acute dilatation of stomach; N30.00 Acute cystitis without hematuria; D61.818 Other pancytopenia; K56.7 Ileus, unspecified; G20 Parkinson's disease; I12.9 Hypertensive chronic kidney disease with stage 1 through stage 4 chronic kidney disease, or unspecified chronic kidney disease; N18.30 Chronic kidney disease, stage 3 unspecified; Z66 Do not resuscitate; K29.60 Other gastritis without bleeding; E53.8 Deficiency of other specified B group vitamins; E55.9 Vitamin D deficiency, unspecified; K59.01 Slow transit constipation; C61 Malignant neoplasm of prostate; N40.0 Benign prostatic hyperplasia without lower urinary tract symptoms; E11.22 Type 2 diabetes mellitus with diabetic chronic kidney disease; E11.51 Type 2 diabetes mellitus with diabetic peripheral angiopathy without gangrene; R29.6 Repeated falls; K21.9 Gastro-esophageal reflux disease without esophagitis; E78.5 Hyperlipidemia, unspecified; F02.80 Dementia in other diseases classified elsewhere, unspecified severity, without behavioral disturbance, psychotic disturbance, mood disturbance, and anxiety; E04.1 Nontoxic single thyroid nodule; G93.89 Other specified disorders of brain; C67.9 Malignant neoplasm of bladder, unspecified; D63.1 Anemia in chronic kidney disease; R09.02 Hypoxemia; I44.1 Atrioventricular block, second degree; E87.6 Hypokalemia; E83.39 Other disorders of phosphorus metabolism; Z96.643 Presence of artificial hip joint, bilateral; Z20.822 Contact with and (suspected) exposure to COVID-19; Z87.891 Personal history of nicotine dependence; Z90.49 Acquired absence of other specified parts of digestive tract; Z79.84 Long term (current) use of oral hypoglycemic drugs; Z79.899 Other long term (current) drug therapy; Z79.82 Long term (current) use of aspirin; I25.2 Old myocardial infarction; Z78.1 Physical restraint status; M97.8XXD Periprosthetic fracture around other internal prosthetic joint, subsequent encounter; S72.91XD Unspecified fracture of right femur, subsequent encounter for closed fracture with routine healing; W19.XXXD Unspecified fall, subsequent encounter
CPT/HCPCS: 36415; 36416; 36600; 51702; 70450; 71045; 71275; 74018; 74177; 80048; 80053; 81003; 82140; 82805; 83605; 83735; 83880; 84100; 84484; 85025; 87040; 87086; 93005; 95712; 95819; 95957; 96365; 96366; 96375; C9113; J0360; J1644; J1815; J1940; J2543; J3370; J3475; J3480; J3490; J7050; J7070; J7611; J7620; Q0167; Q9967; U0002; U0005

== ENCOUNTER 2021-10-02 21:37 | Inpatient (IN) | payer MEDICARE, BC ==
[2021-10-02 22:21] LABS: #Eosinphils 0.1 thou/uL (0.0-0.7); #Lymphocytes 0.6 thou/uL (1.20-3.40); #Monocytes 0.5 thou/uL (0.11-0.59); #Neutrophils 4.2 thou/uL (1.40-6.50); %Eosinophils 1.6 % (0.0-10.0); %Lymphocytes 11.5 % (21.0-51.0); Hemoglobin 11.8 g/dL (14.0-18.0); Mean Corpuscular HGB CONC 33.6 g/dL (32.0-36.0); Mean Corpuscular Hemoglobin 30.7 pg (27.0-31.0); Mean Corpuscular Volume 91.3 fL (78.0-98.0); Mean Platelet Volume 9.1 fL (7.4-10.4); Platelet Count 155 thou/uL (130-400); RBC Distribution Width 14.5 % (11.5-14.5); Red Blood Cell (RBC) Count 3.84 mill/uL (4.70-6.10); White Blood Cell (WBC) Count 5.4 thou/uL (4.8-10.8)
[2021-10-02 22:40] LABS: ALT (SGPT) Less than 7 U/L (8-55); AST (SGOT) 12 U/L (5-34); Albumin 3.5 g/dL (3.4-4.8); Alkaline Phosphatase 97 U/L (40-110); Anion Gap 19 mmol/L (10-20); BUN (Urea Nitrogen) 40 mg/dL (8.4-25.7); Bilirubin, Total 0.4 mg/dL (0.2-1.2); CK (CPK) 69 U/L (30-200); Calc. Creatinine Clearance 0 mL/min (70-130); Calcium 8.7 mg/dL (7.8-10.44); Carbon Dioxide 17 mmol/L (23-31); Chloride 110 mmol/L (98-107); Globulin 2.7 g/dL (2.4-3.5); Glucose 167 mg/dL (83-110); Magnesium 1.3 mg/dL (1.6-2.6); Protein, Total 6.2 g/dL (5.8-8.1); Sodium 142 mmol/L (136-145)
[2021-10-02 22:41] LABS: Bacteria/HPF None Seen HPF (None Seen); Bilirubin Negative (Negative); Blood, Urine 3+ (Negative); Clarity Clear (Clear); Glucose, Urine (Dipstick) Normal (Negative); Ketone, Urine Negative (Negative); Leukocyte Negative Leu/uL (Negative); Nitrite Negative (Negative); Protein, Urine (Dipstick) 50 mg/dL (Neg-Trace); RBC/HPF Greater than 50 HPF (0-3); Specific Gravity, Urine 1.022 (1.002-1.036); Squamous Epithelial None Seen HPF (0-3); Urobilinogen Normal mg/dL (Less than 2); WBC/HPF None Seen HPF (0-3); pH, Urine 5.5 (5.0-9.0)
[2021-10-02] MEDS ORDERED: Magnesium 2 GM/50 ML BAG (IN WATER) ONE (23:23)
[2021-10-03 01:10] VITALS: BMI 29.6
[2021-10-03] MEDS ORDERED: Sodium Chloride 0.9% 1,000 ML IV SCH (01:30)
[2021-10-03] MEDS ORDERED: Dextrose 5% in Water 1,000 ML IV PRN (04:58)
[2021-10-03] MEDS ORDERED: HumaLOG 300 UNITS/3 ML VIAL SC PRN (04:58)
[2021-10-03 05:34] LABS: #Eosinphils 0.1 thou/uL (0.0-0.7); #Lymphocytes 0.6 thou/uL (1.20-3.40); #Monocytes 0.5 thou/uL (0.11-0.59); #Neutrophils 3.1 thou/uL (1.40-6.50); %Basophils 0.1 % (0.0-1.0); %Eosinophils 2.2 % (0.0-10.0); %Lymphocytes 13.2 % (21.0-51.0); %Monocytes 10.8 % (0.0-10.0); %Neutrophils 73.8 % (42.0-75.0); Hemoglobin 11.8 g/dL (14.0-18.0); Mean Corpuscular HGB CONC 32.4 g/dL (32.0-36.0); Mean Corpuscular Volume 92.4 fL (78.0-98.0); Mean Platelet Volume 8.2 fL (7.4-10.4); Platelet Count 151 thou/uL (130-400); RBC Distribution Width 14.3 % (11.5-14.5); Red Blood Cell (RBC) Count 3.95 mill/uL (4.70-6.10); White Blood Cell (WBC) Count 4.2 thou/uL (4.8-10.8)
[2021-10-03 05:52] LABS: Anion Gap 14 mmol/L (10-20); BUN (Urea Nitrogen) 38 mg/dL (8.4-25.7); Calc. Creatinine Clearance 43 mL/min (70-130); Calcium 8.6 mg/dL (7.8-10.44); Carbon Dioxide 23 mmol/L (23-31); Cardiac Risk 2.4 (Less than 4.5); Chloride 112 mmol/L (98-107); Cholesterol 144 mg/dl (< 200 Desired); Glucose 63 mg/dL (83-110); HDL Cholesterol 59 mg/dL (>60 Neg Risk); LDL Cholesterol, Calculated 73 mg/dL; Potassium 3.6 mmol/L (3.5-5.1); Sodium 145 mmol/L (136-145); Triglycerides 61 mg/dL (Less than 150)
[2021-10-03] MEDS: Dextrose 50% Abboject 50 ML SYRINGE SLOW IVP PRN ×2 (05:59→07:46)
[2021-10-03 08:01] LABS: Hemoglobin A1c 6.7 % (4.0-6.0)
[2021-10-03] MEDS: D5 0.9% NS w/ 20 mEq KCl 1,000 ML IV SCH ×2 (09:07→23:07)
[2021-10-03] MEDS ORDERED: FLU VACC QS2021-22(65YR UP)/PF 240 MCG/0.7 ML SYRINGE IM ONE (12:00)
[2021-10-03 15:42] LABS: SARS-CoV-2 PCR by NAA Not Detected (NotDetected)
[2021-10-03] MEDS: hydrALAZINE 20 MG/ML VIAL SLOW IVP PRN (22:37)
[2021-10-04] MEDS: hydrALAZINE 20 MG/ML VIAL SLOW IVP PRN ×4 (01:38→15:36)
[2021-10-04 11:08] LABS: Hemoglobin 12.6 g/dL (14.0-18.0); Platelet Count 152 thou/uL (130-400)
[2021-10-04 11:14] LABS: Anion Gap 14 mmol/L (10-20); BUN (Urea Nitrogen) 24 mg/dL (8.4-25.7); Calc. Creatinine Clearance 53 mL/min (70-130); Calcium 8.9 mg/dL (7.8-10.44); Carbon Dioxide 19 mmol/L (23-31); Chloride 116 mmol/L (98-107); Glucose 150 mg/dL (83-110); Potassium 3.7 mmol/L (3.5-5.1); Sodium 145 mmol/L (136-145)
[2021-10-04] MEDS: D5 0.9% NS w/ 20 mEq KCl 1,000 ML IV SCH (12:38)
[2021-10-04] MEDS ORDERED: Labetalol HCl 100 MG/20 ML VIAL SLOW IVP SCH (13:11)
[2021-10-04] MEDS: Acetaminophen 325 MG TAB PO PRN (14:00)
[2021-10-04] MEDS: Carbidopa/Levodopa CR 50-200 mg Tablet PO SCH (17:23)
[2021-10-04] MEDS: HumaLOG 300 UNITS/3 ML VIAL SC PRN (18:14)
[2021-10-04] MEDS: Labetalol HCl 100 MG/20 ML VIAL SLOW IVP PRN (18:14)
[2021-10-04] MEDS ORDERED: Amlodipine 10 MG TAB PO SCH (18:30)
[2021-10-04 19:14] LABS: Hemoglobin 12.1 g/dL (14.0-18.0); Platelet Count 156 thou/uL (130-400)
[2021-10-04] MEDS: Tamsulosin HCl 0.4 MG CAP PO SCH (20:52)
[2021-10-04] MEDS: Melatonin 3 MG TAB PO SCH (20:52)
[2021-10-04] MEDS: Simvastatin 10 MG TAB PO SCH (20:52)
[2021-10-04] MEDS ORDERED: Ferrous Sulfate 325 MG TAB PO SCH (21:00)
[2021-10-05] MEDS: hydrALAZINE 20 MG/ML VIAL SLOW IVP PRN ×3 (00:37→11:54)
[2021-10-05] MEDS: D5 0.9% NS w/ 20 mEq KCl 1,000 ML IV SCH ×2 (04:17→18:22)
[2021-10-05 04:23] LABS: #Eosinphils 0.1 thou/uL (0.0-0.7); #Lymphocytes 0.6 thou/uL (1.20-3.40); #Monocytes 0.5 thou/uL (0.11-0.59); #Neutrophils 3.1 thou/uL (1.40-6.50); %Basophils 0.3 % (0.0-1.0); %Eosinophils 2.2 % (0.0-10.0); %Monocytes 12.4 % (0.0-10.0); %Neutrophils 72.2 % (42.0-75.0); Hemoglobin 11.7 g/dL (14.0-18.0); Mean Corpuscular HGB CONC 33.1 g/dL (32.0-36.0); Mean Corpuscular Hemoglobin 30.3 pg (27.0-31.0); Mean Corpuscular Volume 91.5 fL (78.0-98.0); Mean Platelet Volume 8.1 fL (7.4-10.4); Platelet Count 155 thou/uL (130-400); RBC Distribution Width 14.4 % (11.5-14.5); Red Blood Cell (RBC) Count 3.87 mill/uL (4.70-6.10); White Blood Cell (WBC) Count 4.3 thou/uL (4.8-10.8)
[2021-10-05 04:41] LABS: Anion Gap 13 mmol/L (10-20); BUN (Urea Nitrogen) 21 mg/dL (8.4-25.7); Calc. Creatinine Clearance 53 mL/min (70-130); Calcium 8.7 mg/dL (7.8-10.44); Carbon Dioxide 22 mmol/L (23-31); Chloride 114 mmol/L (98-107); Glucose 164 mg/dL (83-110); Potassium 3.8 mmol/L (3.5-5.1); Sodium 145 mmol/L (136-145)
[2021-10-05] MEDS: Carbidopa/Levodopa CR 50-200 mg Tablet PO SCH ×3 (06:21→17:17)
[2021-10-05] MEDS: HumaLOG 300 UNITS/3 ML VIAL SC PRN ×3 (06:42→17:39)
[2021-10-05] MEDS: Multivitamin W/ Minerals 1 TAB PO SCH (08:47)
[2021-10-05] MEDS: Losartan 25 MG TAB PO SCH (08:47)
[2021-10-05] MEDS ORDERED: Amlodipine 10 MG TAB PO SCH (09:00)
[2021-10-05 10:21] LABS: Hemoglobin 12.5 g/dL (14.0-18.0); Platelet Count 148 thou/uL (130-400)
[2021-10-05] MEDS: Labetalol HCl 100 MG/20 ML VIAL SLOW IVP PRN (12:46)
[2021-10-05] MEDS ORDERED: Labetalol HCl 100 MG/20 ML VIAL SLOW IVP SCH (14:45)
[2021-10-05] MEDS: hydrALAZINE 25 MG TAB PO SCH ×2 (15:18→21:22)
[2021-10-05] MEDS ORDERED: Aspirin Chewable 81 MG TAB PO SCH (15:52)
[2021-10-05] MEDS: Tamsulosin HCl 0.4 MG CAP PO SCH (21:21)
[2021-10-05] MEDS: Simvastatin 10 MG TAB PO SCH (21:22)
[2021-10-05] MEDS: Amlodipine 10 MG TAB PO SCH (21:22)
[2021-10-05] MEDS: Melatonin 3 MG TAB PO SCH (21:22)
[2021-10-06] MEDS: hydrALAZINE 20 MG/ML VIAL SLOW IVP PRN (00:36)
[2021-10-06] MEDS: HumaLOG 300 UNITS/3 ML VIAL SC PRN ×3 (06:25→17:43)
[2021-10-06 07:58] LABS: Hemoglobin 12.2 g/dL (14.0-18.0); Mean Corpuscular Hemoglobin 29.2 pg (27.0-31.0); Mean Corpuscular Volume 91.4 fL (78.0-98.0); Platelet Count 159 thou/uL (130-400); RBC Distribution Width 14.4 % (11.5-14.5); Red Blood Cell (RBC) Count 4.18 mill/uL (4.70-6.10); White Blood Cell (WBC) Count 4.9 thou/uL (4.8-10.8)
[2021-10-06 08:15] LABS: Anion Gap 12 mmol/L (10-20); BUN (Urea Nitrogen) 26 mg/dL (8.4-25.7); Calc. Creatinine Clearance 38 mL/min (70-130); Calcium 9.6 mg/dL (7.8-10.44); Carbon Dioxide 25 mmol/L (23-31); Chloride 112 mmol/L (98-107); Glucose 205 mg/dL (83-110); Sodium 145 mmol/L (136-145)
[2021-10-06] MEDS: Multivitamin W/ Minerals 1 TAB PO SCH (09:08)
[2021-10-06] MEDS: Losartan 25 MG TAB PO SCH (09:08)
[2021-10-06] MEDS: Carbidopa/Levodopa CR 50-200 mg Tablet PO SCH ×3 (09:09→17:36)
[2021-10-06] MEDS: hydrALAZINE 25 MG TAB PO SCH ×3 (09:09→21:19)
[2021-10-06] MEDS: Aspirin Chewable 81 MG TAB PO SCH (09:12)
[2021-10-06] MEDS ORDERED: hydrALAZINE 25 MG TAB PO SCH ×3 (10:08→10:30)
[2021-10-06] MEDS: Nystatin 500,000 UNITS/5 ML UDCUP SSW SCH ×2 (17:36→21:19)
[2021-10-06] MEDS: Melatonin 3 MG TAB PO SCH (21:18)
[2021-10-06] MEDS: Tamsulosin HCl 0.4 MG CAP PO SCH (21:19)
[2021-10-06] MEDS: Amlodipine 10 MG TAB PO SCH (21:19)
[2021-10-06] MEDS: Simvastatin 10 MG TAB PO SCH (21:34)
[2021-10-07 08:15] LABS: Hemoglobin 11.3 g/dL (14.0-18.0); Mean Corpuscular HGB CONC 32.8 g/dL (32.0-36.0); Mean Corpuscular Volume 91.5 fL (78.0-98.0); Mean Platelet Volume 8.3 fL (7.4-10.4); Platelet Count 144 thou/uL (130-400); RBC Distribution Width 14.2 % (11.5-14.5); Red Blood Cell (RBC) Count 3.75 mill/uL (4.70-6.10); White Blood Cell (WBC) Count 4.5 thou/uL (4.8-10.8)
[2021-10-07 08:30] LABS: Anion Gap 15 mmol/L (10-20); BUN (Urea Nitrogen) 29 mg/dL (8.4-25.7); Calc. Creatinine Clearance 41 mL/min (70-130); Calcium 9.1 mg/dL (7.8-10.44); Carbon Dioxide 21 mmol/L (23-31); Chloride 112 mmol/L (98-107); Glucose 221 mg/dL (83-110); Potassium 3.6 mmol/L (3.5-5.1); Sodium 144 mmol/L (136-145)
[2021-10-07] MEDS: Nystatin 500,000 UNITS/5 ML UDCUP SSW SCH ×3 (10:17→16:58)
[2021-10-07] MEDS: Losartan 25 MG TAB PO SCH (10:18)
[2021-10-07] MEDS: Carbidopa/Levodopa CR 50-200 mg Tablet PO SCH ×3 (10:19→16:58)
[2021-10-07] MEDS: Aspirin Chewable 81 MG TAB PO SCH (10:20)
[2021-10-07] MEDS: hydrALAZINE 25 MG TAB PO SCH ×3 (10:21→17:07)
[2021-10-07] MEDS: Multivitamin W/ Minerals 1 TAB PO SCH (10:21)
[2021-10-07] MEDS: Acetaminophen 325 MG TAB PO PRN ×2 (11:34→16:58)
[2021-10-07] MEDS: HumaLOG 300 UNITS/3 ML VIAL SC PRN ×2 (14:26→16:58)
[2021-10-07 15:48] VITALS: TEMP 97.9
[2021-10-07] MEDS: Amlodipine 10 MG TAB PO SCH (17:12)
[2021-10-07 18:43] VITALS: BP 161/81
== END 2021-10-07 19:10 | disposition home health service (06) | DRG 682 ==
LOC: ERS 21:37 → NEURO 23:12
PROVIDERS: ADMIT Student in an Organized Health Care Education/Training Program; ATTEND Family Medicine
DX: N17.9 Acute kidney failure, unspecified (principal); G92.8 Other toxic encephalopathy; K92.1 Melena; Z66 Do not resuscitate; Z20.822 Contact with and (suspected) exposure to COVID-19; N40.0 Benign prostatic hyperplasia without lower urinary tract symptoms; E78.5 Hyperlipidemia, unspecified; D63.1 Anemia in chronic kidney disease; R13.12 Dysphagia, oropharyngeal phase; E83.42 Hypomagnesemia; G20 Parkinson's disease; I12.9 Hypertensive chronic kidney disease with stage 1 through stage 4 chronic kidney disease, or unspecified chronic kidney disease; N18.30 Chronic kidney disease, stage 3 unspecified; E11.22 Type 2 diabetes mellitus with diabetic chronic kidney disease; E11.649 Type 2 diabetes mellitus with hypoglycemia without coma; T42.6X5A Adverse effect of other antiepileptic and sedative-hypnotic drugs, initial encounter; I16.0 Hypertensive urgency; Z90.49 Acquired absence of other specified parts of digestive tract; Z87.891 Personal history of nicotine dependence; Z79.82 Long term (current) use of aspirin; Z79.4 Long term (current) use of insulin; Z79.51 Long term (current) use of inhaled steroids; Z79.899 Other long term (current) drug therapy; Z85.51 Personal history of malignant neoplasm of bladder; Z85.46 Personal history of malignant neoplasm of prostate
CPT/HCPCS: 36415; 36416; 51701; 70450; 71045; 80048; 80053; 80061; 81003; 81015; 82274; 82550; 83036; 83735; 84443; 84484; 85014; 85018; 85025; 85027; 85049; 93306; 93880; 95712; 95819; 95957; 96365; J0360; J1815; J3475; J3480; J7050; U0003; U0005